=== PATIENT | female | born 1970 | race Caucasian/White ===

== ENCOUNTER 2019-11-21 13:24 | Outpatient (CLI) | payer BC ==
--- NOTE | 2019-11-21 14:13 | MMO ---
Bilateral MAMMO Bilat Screen [facility]. CLINICAL HISTORY: Patient is 49 years old and is seen for screening. The patient has no family history of breast cancer. The patient has no personal history of cancer. VIEWS: The views performed were: bilateral craniocaudal; bilateral craniocaudal with tomosynthesis; bilateral mediolateral oblique; and bilateral mediolateral oblique with tomosynthesis. This study has been interpreted with the assistance of computer-aided detection. MAMMOGRAM FINDINGS: The breasts are almost entirely fat. There are benign appearing calcifications seen in both breasts. There are no suspicious masses, suspicious calcifications, or new areas of architectural distortion. IMPRESSION: THERE IS NO MAMMOGRAPHIC EVIDENCE OF MALIGNANCY. A ROUTINE FOLLOW-UP MAMMOGRAM IN 1 YEAR IS RECOMMENDED. THE RESULTS OF THIS EXAM WERE SENT TO THE PATIENT. ACR BI-RADS Category 2 - Benign finding MAMMOGRAPHY NOTE: 1. A negative mammogram report should not delay a biopsy if a dominant of clinically suspicious mass is present. 2. Approximately 10% to 15% of breast cancers are not detected by mammography. 3. Adenosis and dense breasts may obscure an underlying neoplasm. Reported by: DOM WAY MD Electonically Signed: [id number]
== END 2019-11-21 13:25 | disposition home or self-care (01) ==
LOC: BICMAMMO 13:24
PROVIDERS: ATTEND Family Medicine
DX: Z12.31 Encounter for screening mammogram for malignant neoplasm of breast (principal)
CPT/HCPCS: 77063; 77067

== ENCOUNTER 2021-03-09 13:01 | Outpatient (CLI) | payer BC | END 2021-03-09 13:02 | disposition home or self-care (01) | LOC: BICMAMMO 13:01 | PROVIDERS: ATTEND Family Medicine | DX: Z12.31 Encounter for screening mammogram for malignant neoplasm of breast (principal) | CPT/HCPCS: 77063; 77067 ==

== ENCOUNTER 2021-05-28 11:13 | Inpatient (IN) | payer BC ==
[2021-05-28] MEDS ORDERED: Clindamycin/D5W 900 mg/50 ml Premix Bag ONE (11:57)
[2021-05-28] MEDS ORDERED: Cefepime 2 GM VIAL ONE (11:57)
[2021-05-28 12:13] LABS: #Basophils 0.1 thou/uL (0.0-0.2); #Eosinphils 0.1 thou/uL (0.0-0.7); #Monocytes 2.1 thou/uL (0.11-0.59); #Neutrophils 12.7 thou/uL (1.40-6.50); %Basophils 0.4 % (0.0-1.0); %Eosinophils 0.4 % (0.0-10.0); %Lymphocytes 11.8 % (21.0-51.0); %Monocytes 12.6 % (0.0-10.0); %Neutrophils 74.8 % (42.0-75.0); Hemoglobin 15.4 g/dL (12.0-16.0); Mean Corpuscular Hemoglobin 31.2 pg (27.0-31.0); Mean Corpuscular Volume 91.6 fL (78.0-98.0); Mean Platelet Volume 7.7 fL (7.4-10.4); Platelet Count 283 thou/uL (130-400); RBC Distribution Width 11.9 % (11.5-14.5); Red Blood Cell (RBC) Count 4.94 mill/uL (4.20-5.40)
[2021-05-28 12:28] LABS: ALT (SGPT) 16 U/L (8-55); AST (SGOT) 17 U/L (5-34); Albumin 3.4 g/dL (3.5-5.0); Alkaline Phosphatase 164 U/L (40-110); Anion Gap 15 mmol/L (10-20); BUN (Urea Nitrogen) 9 mg/dL (9.8-20.1); Bilirubin, Total 1.1 mg/dL (0.2-1.2); Calc. Creatinine Clearance 0 mL/min (70-130); Calcium 9.5 mg/dL (7.8-10.44); Carbon Dioxide 23 mmol/L (22-29); Chloride 100 mmol/L (98-107); Globulin 4.5 g/dL (2.4-3.5); Glucose 286 mg/dL (70-105); Potassium 3.9 mmol/L (3.5-5.1); Protein, Total 7.9 g/dL (6.0-8.3); Sodium 134 mmol/L (136-145)
[2021-05-28] MEDS ORDERED: Dextrose 5% in Water 1,000 ML IV PRN (13:39)
[2021-05-28] MEDS ORDERED: Dextrose 50% Abboject 50 ML SYRINGE SLOW IVP PRN (13:39)
[2021-05-28] MEDS ORDERED: Acetaminophen 325 MG TAB PO PRN (13:39)
[2021-05-28] MEDS ORDERED: HumaLOG 300 UNITS/3 ML VIAL SC PRN (13:39)
[2021-05-28 14:59] VITALS: BMI 52.5
[2021-05-28] MEDS: HYDROcodone/Acetaminophen 5/325 mg Tablet PO PRN ×2 (15:02→21:39)
[2021-05-28] MEDS: Cefepime 2 GM in Sodium Chloride 0.9% 100 ML IVPB SCH ×2 (15:02→15:29)
[2021-05-28 15:18] LABS: Lactic Acid 1.7 mmol/L (0.5-2.2)
[2021-05-28] MEDS: HumaLOG 300 UNITS/3 ML VIAL SC PRN (17:06)
[2021-05-28 19:43] LABS: SARS-CoV-2 PCR by NAA Not Detected (NotDetected)
[2021-05-28] MEDS ORDERED: Lantus 1000 UNITS/10 ML VIAL SC SCH (21:00)
[2021-05-28] MEDS: Clindamycin/D5W 900 MG in Premix Bag 1 BAG IVPB SCH (21:38)
[2021-05-29] MEDS: Cefepime 2 GM in Sodium Chloride 0.9% 100 ML IVPB SCH ×2 (00:20→13:24)
[2021-05-29] MEDS: Clindamycin/D5W 900 MG in Premix Bag 1 BAG IVPB SCH ×2 (05:02→14:21)
[2021-05-29] MEDS: HumaLOG 300 UNITS/3 ML VIAL SC PRN ×4 (05:02→21:12)
[2021-05-29 05:58] LABS: #Eosinphils 0.1 thou/uL (0.0-0.7); #Lymphocytes 2.5 thou/uL (1.20-3.40); #Monocytes 2.2 thou/uL (0.11-0.59); #Neutrophils 10.6 thou/uL (1.40-6.50); %Basophils 0.3 % (0.0-1.0); %Eosinophils 0.5 % (0.0-10.0); %Lymphocytes 15.9 % (21.0-51.0); %Monocytes 14.4 % (0.0-10.0); %Neutrophils 68.9 % (42.0-75.0); Hemoglobin 13.4 g/dL (12.0-16.0); Mean Corpuscular HGB CONC 33.5 g/dL (32.0-36.0); Mean Corpuscular Hemoglobin 30.5 pg (27.0-31.0); Mean Corpuscular Volume 91.1 fL (78.0-98.0); Mean Platelet Volume 7.4 fL (7.4-10.4); Platelet Count 249 thou/uL (130-400); RBC Distribution Width 11.8 % (11.5-14.5); White Blood Cell (WBC) Count 15.4 thou/uL (4.8-10.8)
[2021-05-29 06:18] LABS: Anion Gap 11 mmol/L (10-20); BUN (Urea Nitrogen) 11 mg/dL (9.8-20.1); Calc. Creatinine Clearance 214 mL/min (70-130); Calcium 8.7 mg/dL (7.8-10.44); Carbon Dioxide 24 mmol/L (22-29); Chloride 101 mmol/L (98-107); Glucose 232 mg/dL (70-105); Potassium 3.8 mmol/L (3.5-5.1); Sodium 132 mmol/L (136-145)
[2021-05-29] MEDS ORDERED: Insulin Glargine 30 UNITS in Pre-Filled Syringe 1 EACH SC SCH (09:00)
[2021-05-29] MEDS ORDERED: Lantus 1000 UNITS/10 ML VIAL SC SCH (09:00)
[2021-05-29] MEDS: Enoxaparin Sodium 40 MG/0.4 ML SYRINGE SC SCH (09:13)
[2021-05-29] MEDS ORDERED: Famotidine 20 MG TAB PO SCH ×2 (10:00→21:00)
[2021-05-29] MEDS: HYDROcodone/Acetaminophen 5/325 mg Tablet PO PRN (13:22)
[2021-05-29] MEDS: Linezolid 600 MG TAB PO SCH (21:10)
[2021-05-29] MEDS: Atorvastatin Calcium 10 MG TAB PO SCH (21:10)
[2021-05-29] MEDS: Famotidine 20 MG TAB PO SCH (21:10)
[2021-05-29] MEDS: Lantus 1000 UNITS/10 ML VIAL SC SCH (21:11)
[2021-05-29] MEDS: ceFAZolin Sodium/D5W 2 GM in Premix Bag 1 BAG IVPB SCH (21:26)
[2021-05-29] MEDS ORDERED: CEFAZOLIN 2 GM in Premix Bag 1 BAG IVPB SCH (22:00)
[2021-05-30] MEDS: HYDROcodone/Acetaminophen 5/325 mg Tablet PO PRN ×2 (00:28→17:53)
[2021-05-30 05:57] LABS: #Eosinphils 0.1 thou/uL (0.0-0.7); #Lymphocytes 2.4 thou/uL (1.20-3.40); #Monocytes 1.6 thou/uL (0.11-0.59); #Neutrophils 10.4 thou/uL (1.40-6.50); %Basophils 0.3 % (0.0-1.0); %Eosinophils 0.6 % (0.0-10.0); %Lymphocytes 16.3 % (21.0-51.0); %Monocytes 11.2 % (0.0-10.0); %Neutrophils 71.7 % (42.0-75.0); Hemoglobin 14.3 g/dL (12.0-16.0); Mean Corpuscular HGB CONC 33.2 g/dL (32.0-36.0); Mean Corpuscular Hemoglobin 30.6 pg (27.0-31.0); Mean Corpuscular Volume 92.1 fL (78.0-98.0); Platelet Count 302 thou/uL (130-400); RBC Distribution Width 11.6 % (11.5-14.5); Red Blood Cell (RBC) Count 4.68 mill/uL (4.20-5.40); White Blood Cell (WBC) Count 14.5 thou/uL (4.8-10.8)
[2021-05-30] MEDS: HumaLOG 300 UNITS/3 ML VIAL SC PRN ×4 (06:00→17:51)
[2021-05-30] MEDS: ceFAZolin Sodium/D5W 2 GM in Premix Bag 1 BAG IVPB SCH ×3 (06:01→21:58)
[2021-05-30 06:22] LABS: Anion Gap 12 mmol/L (10-20); BUN (Urea Nitrogen) 9 mg/dL (9.8-20.1); Calc. Creatinine Clearance 211 mL/min (70-130); Carbon Dioxide 22 mmol/L (22-29); Chloride 101 mmol/L (98-107); Glucose 220 mg/dL (70-105); Potassium 4.2 mmol/L (3.5-5.1); Sodium 131 mmol/L (136-145)
[2021-05-30] MEDS: Linezolid 600 MG TAB PO SCH ×2 (08:01→20:25)
[2021-05-30] MEDS: Enoxaparin Sodium 40 MG/0.4 ML SYRINGE SC SCH (08:01)
[2021-05-30] MEDS: Lantus 1000 UNITS/10 ML VIAL SC SCH ×3 (08:01→20:43)
[2021-05-30] MEDS: Famotidine 20 MG TAB PO SCH ×2 (08:02→20:25)
[2021-05-30] MEDS: Atorvastatin Calcium 10 MG TAB PO SCH (20:25)
[2021-05-31] MEDS: HumaLOG 300 UNITS/3 ML VIAL SC PRN ×4 (06:23→19:46)
[2021-05-31] MEDS: ceFAZolin Sodium/D5W 2 GM in Premix Bag 1 BAG IVPB SCH ×3 (06:24→22:06)
[2021-05-31 06:52] LABS: Anion Gap 11 mmol/L (10-20); BUN (Urea Nitrogen) 7 mg/dL (9.8-20.1); Calc. Creatinine Clearance 224 mL/min (70-130); Calcium 8.8 mg/dL (7.8-10.44); Carbon Dioxide 26 mmol/L (22-29); Chloride 103 mmol/L (98-107); Glucose 183 mg/dL (70-105); Potassium 3.8 mmol/L (3.5-5.1); Sodium 136 mmol/L (136-145)
[2021-05-31 07:17] LABS: Eosinophils 3 % (0-10); Lymphocytes 17 % (21-51); MDiff Complete? YES; Mean Corpuscular HGB CONC 33.2 g/dL (32.0-36.0); Mean Corpuscular Hemoglobin 30.5 pg (27.0-31.0); Mean Corpuscular Volume 92.1 fL (78.0-98.0); Mean Platelet Volume 6.9 fL (7.4-10.4); Monocytes 10 % (0-10); Neutrophil 70 % (42-75); Platelet Count 301 thou/uL (130-400); Platelet Morphology Comment Appears Adequate; RBC Distribution Width 11.6 % (11.5-14.5); RBC Morphology Normal; Red Blood Cell (RBC) Count 4.58 mill/uL (4.20-5.40); White Blood Cell (WBC) Count 10.3 thou/uL (4.8-10.8)
[2021-05-31] MEDS: Linezolid 600 MG TAB PO SCH (08:06)
[2021-05-31] MEDS: Enoxaparin Sodium 40 MG/0.4 ML SYRINGE SC SCH (08:06)
[2021-05-31] MEDS: Famotidine 20 MG TAB PO SCH ×2 (08:07→19:45)
[2021-05-31] MEDS: Lantus 1000 UNITS/10 ML VIAL SC SCH ×2 (08:07→19:46)
[2021-05-31] MEDS: HYDROcodone/Acetaminophen 5/325 mg Tablet PO PRN (18:00)
[2021-05-31] MEDS: Atorvastatin Calcium 10 MG TAB PO SCH (19:45)
[2021-06-01] MEDS: Furosemide 40 MG/4 ML VIAL SLOW IVP SCH ×2 (06:05→14:05)
[2021-06-01] MEDS: ceFAZolin Sodium/D5W 2 GM in Premix Bag 1 BAG IVPB SCH ×3 (06:05→22:22)
[2021-06-01 06:51] LABS: Anion Gap 9 mmol/L (10-20); BUN (Urea Nitrogen) 7 mg/dL (9.8-20.1); Calc. Creatinine Clearance 239 mL/min (70-130); Calcium 8.9 mg/dL (7.8-10.44); Carbon Dioxide 28 mmol/L (22-29); Chloride 104 mmol/L (98-107); Glucose 167 mg/dL (70-105); Potassium 4.1 mmol/L (3.5-5.1); Sodium 137 mmol/L (136-145)
[2021-06-01 07:37] LABS: Band 3 % (5-11); Eosinophils 2 % (0-10); Hemoglobin 13.6 g/dL (12.0-16.0); Lymphocytes 21 % (21-51); MDiff Complete? YES; Mean Corpuscular HGB CONC 33.9 g/dL (32.0-36.0); Mean Corpuscular Hemoglobin 30.7 pg (27.0-31.0); Mean Corpuscular Volume 90.5 fL (78.0-98.0); Mean Platelet Volume 6.7 fL (7.4-10.4); Monocytes 7 % (0-10); Neutrophil 62 % (42-75); Platelet Count 307 thou/uL (130-400); RBC Distribution Width 11.6 % (11.5-14.5); RBC Morphology Normal; Reactive Lymphocytes 5 % (0-10); Red Blood Cell (RBC) Count 4.45 mill/uL (4.20-5.40); White Blood Cell (WBC) Count 9.5 thou/uL (4.8-10.8)
[2021-06-01] MEDS: Famotidine 20 MG TAB PO SCH ×2 (08:27→20:37)
[2021-06-01] MEDS: Enoxaparin Sodium 40 MG/0.4 ML SYRINGE SC SCH (08:27)
[2021-06-01] MEDS: Lantus 1000 UNITS/10 ML VIAL SC SCH ×2 (08:28→20:38)
[2021-06-01] MEDS: HumaLOG 300 UNITS/3 ML VIAL SC PRN ×3 (12:59→20:38)
[2021-06-01] MEDS: HYDROcodone/Acetaminophen 5/325 mg Tablet PO PRN ×2 (15:21→22:21)
[2021-06-01] MEDS: Lactated Ringer's 1,000 ML IV SCH (18:14)
[2021-06-01] MEDS: Atorvastatin Calcium 10 MG TAB PO SCH (20:37)
[2021-06-02] MEDS: Lactated Ringer's 1,000 ML IV SCH ×3 (01:30→22:00)
[2021-06-02] MEDS: Furosemide 40 MG/4 ML VIAL SLOW IVP SCH ×2 (05:17→14:50)
[2021-06-02] MEDS: ceFAZolin Sodium/D5W 2 GM in Premix Bag 1 BAG IVPB SCH ×3 (05:17→21:20)
[2021-06-02] MEDS: HumaLOG 300 UNITS/3 ML VIAL SC PRN ×4 (06:02→21:18)
[2021-06-02] MEDS: Famotidine 20 MG TAB PO SCH ×2 (07:44→20:41)
[2021-06-02] MEDS: Enoxaparin Sodium 40 MG/0.4 ML SYRINGE SC SCH (07:44)
[2021-06-02] MEDS: Lantus 1000 UNITS/10 ML VIAL SC SCH ×2 (07:45→21:17)
[2021-06-02] MEDS: HYDROcodone/Acetaminophen 5/325 mg Tablet PO PRN ×2 (10:42→20:41)
[2021-06-02] MEDS: Atorvastatin Calcium 10 MG TAB PO SCH (20:42)
[2021-06-03] MEDS: ceFAZolin Sodium/D5W 2 GM in Premix Bag 1 BAG IVPB SCH ×3 (05:13→22:44)
[2021-06-03] MEDS: Furosemide 40 MG/4 ML VIAL SLOW IVP SCH ×2 (05:13→15:03)
[2021-06-03] MEDS: Lactated Ringer's 1,000 ML IV SCH ×2 (09:40→18:12)
[2021-06-03] MEDS: Famotidine 20 MG TAB PO SCH ×2 (09:40→20:18)
[2021-06-03] MEDS: Enoxaparin Sodium 40 MG/0.4 ML SYRINGE SC SCH (09:40)
[2021-06-03] MEDS: Lantus 1000 UNITS/10 ML VIAL SC SCH ×2 (09:41→20:19)
[2021-06-03] MEDS: HumaLOG 300 UNITS/3 ML VIAL SC PRN ×3 (12:38→20:20)
[2021-06-03] MEDS: Atorvastatin Calcium 10 MG TAB PO SCH (20:18)
[2021-06-04] MEDS: Lactated Ringer's 1,000 ML IV SCH (01:09)
[2021-06-04] MEDS: ceFAZolin Sodium/D5W 2 GM in Premix Bag 1 BAG IVPB SCH (05:18)
[2021-06-04] MEDS: Furosemide 40 MG/4 ML VIAL SLOW IVP SCH (05:18)
[2021-06-04] MEDS: HumaLOG 300 UNITS/3 ML VIAL SC PRN ×2 (05:19→12:35)
[2021-06-04] MEDS: Lantus 1000 UNITS/10 ML VIAL SC SCH (09:14)
[2021-06-04] MEDS: Enoxaparin Sodium 40 MG/0.4 ML SYRINGE SC SCH (09:15)
[2021-06-04] MEDS: Famotidine 20 MG TAB PO SCH (09:15)
[2021-06-04 11:14] VITALS: BP 129/84; TEMP 98.1
== END 2021-06-04 13:40 | disposition home or self-care (01) | DRG 872 ==
LOC: ERS 11:13 → T4-A 12:59
PROVIDERS: ADMIT Family Medicine; ATTEND Hospitalist
PROC: 0Y9N3ZZ Drainage of Left Foot, Percutaneous Approach (ICD-10-PCS; principal; 2021-05-29)
PROC: 0J9R0ZZ Drainage of Left Foot Subcutaneous Tissue and Fascia, Open Approach (ICD-10-PCS; 2021-06-02)
PROC: 0J9R0ZZ Drainage of Left Foot Subcutaneous Tissue and Fascia, Open Approach (ICD-10-PCS; 2021-06-02)
DX: A40.1 Sepsis due to streptococcus, group B (principal); Z68.43 Body mass index [BMI] 50.0-59.9, adult; L02.612 Cutaneous abscess of left foot; I10 Essential (primary) hypertension; E78.5 Hyperlipidemia, unspecified; E11.42 Type 2 diabetes mellitus with diabetic polyneuropathy; E66.01 Morbid (severe) obesity due to excess calories; I89.0 Lymphedema, not elsewhere classified; E11.628 Type 2 diabetes mellitus with other skin complications; E78.00 Pure hypercholesterolemia, unspecified; Z20.822 Contact with and (suspected) exposure to COVID-19; Z90.49 Acquired absence of other specified parts of digestive tract; Z90.710 Acquired absence of both cervix and uterus; Z88.1 Allergy status to other antibiotic agents; Z88.8 Allergy status to other drugs, medicaments and biological substances
CPT/HCPCS: 36415; 36416; 80048; 80053; 83605; 83880; 85025; 87040; 87070; 87077; 87205; 93005; 96365; 96366; 96368; J0692; J1650; J1815; J1940; J3490; J7120; U0003; U0005

== ENCOUNTER 2021-11-19 11:03 | Inpatient (IN) | payer BC ==
[2021-11-19 11:39] LABS: #Basophils 0.1 thou/uL (0.0-0.2); #Eosinphils 0.1 thou/uL (0.0-0.7); #Lymphocytes 2.5 thou/uL (1.20-3.40); #Monocytes 1.6 thou/uL (0.11-0.59); #Neutrophils 8.4 thou/uL (1.40-6.50); %Basophils 0.5 % (0.0-1.0); %Eosinophils 1.1 % (0.0-10.0); %Lymphocytes 19.6 % (21.0-51.0); %Monocytes 12.3 % (0.0-10.0); %Neutrophils 66.4 % (42.0-75.0); Hemoglobin 16.3 g/dL (12.0-16.0); Mean Corpuscular HGB CONC 32.4 g/dL (32.0-36.0); Mean Corpuscular Volume 92.6 fL (78.0-98.0); Mean Platelet Volume 7.6 fL (7.4-10.4); Platelet Count 376 thou/uL (130-400); RBC Distribution Width 11.7 % (11.5-14.5); Red Blood Cell (RBC) Count 5.42 mill/uL (4.20-5.40); White Blood Cell (WBC) Count 12.7 thou/uL (4.8-10.8)
[2021-11-19 11:49] LABS: PTT 27.4 sec (22.9-36.1); Prothrombin Time 13.7 sec (12.0-14.7)
[2021-11-19 11:53] LABS: Phosphorus 2.7 mg/dL (2.3-4.7)
[2021-11-19 11:55] LABS: ALT (SGPT) 16 U/L (8-55); AST (SGOT) 19 U/L (5-34); Albumin 3.6 g/dL (3.5-5.0); Alkaline Phosphatase 118 U/L (40-110); Anion Gap 16 mmol/L (10-20); BUN (Urea Nitrogen) 8 mg/dL (9.8-20.1); Bilirubin, Total 1.2 mg/dL (0.2-1.2); Calc. Creatinine Clearance 0 mL/min (70-130); Calcium 9.4 mg/dL (7.8-10.44); Carbon Dioxide 25 mmol/L (22-29); Chloride 99 mmol/L (98-107); Globulin 5.3 g/dL (2.4-3.5); Glucose 345 mg/dL (70-105); Magnesium 1.6 mg/dL (1.6-2.6); Potassium 3.5 mmol/L (3.5-5.1); Protein, Total 8.9 g/dL (6.0-8.3); Sodium 136 mmol/L (136-145)
[2021-11-19] MEDS ORDERED: Clindamycin/D5W 900 mg/50 ml Premix Bag ONE (12:04)
[2021-11-19] MEDS ORDERED: cefTRIAXone\\ROCEPHIN 2 GM VIAL ONE (12:04)
[2021-11-19] MEDS ORDERED: Insulin Regular 300 UNITS/3 ML VIAL ONE (12:17)
[2021-11-19 14:30] LABS: Actual Bicarbonate (HCO3v) 25 mEq/L (22-28); Analyzer IN Cardio ER; Base Excess -0.5 mEq/L (-2.0 to +3.0); Calcium, Ionized (venous) 1.07 mmol/L (1.16-1.32); Chloride (VBG) 104 mmol/L (98-106); Hemoglobin (Hb) 14.4 g/dL (11.7-16.0); Potassium (VBG) 3.58 mmol/L (3.70-5.30); Sodium 134.6 mmol/L (133-146); pH (venous) 7.38 (7.32-7.43)
[2021-11-19 15:02] LABS: Lactic Acid 1.8 mmol/L (0.5-2.2)
[2021-11-19] MEDS ORDERED: Ondansetron PF 4 MG/2 ML Vial IVP PRN ×2 (15:35→16:15)
[2021-11-19] MEDS ORDERED: Senokot S 8.6-50 MG TAB PO PRN (15:35)
[2021-11-19] MEDS ORDERED: Calcium Carbonate 500 MG ChewTAB PO PRN (15:35)
[2021-11-19] MEDS ORDERED: Ondansetron ODT 4 MG TAB PO PRN (15:35)
[2021-11-19 16:09] VITALS: BMI 51.0
[2021-11-19] MEDS ORDERED: Acetaminophen 325 MG TAB PO PRN (16:15)
[2021-11-19] MEDS ORDERED: Ondansetron ODT 4 MG TAB SL PRN (16:15)
[2021-11-19] MEDS ORDERED: Dextrose 5% in Water 1,000 ML IV PRN (16:17)
[2021-11-19] MEDS ORDERED: Dextrose 50% Abboject 50 ML SYRINGE SLOW IVP PRN (16:17)
[2021-11-19] MEDS ORDERED: Electrolyte Replacement Protocol 1 EACH FS PRN (16:30)
[2021-11-19] MEDS: Insulin Regular 300 UNITS/3 ML VIAL SC PRN (17:20)
[2021-11-19] MEDS: Ampicillin/Sulbactam 3 GM in Sodium Chloride 0.9% 100 ML IVPB SCH (17:28)
[2021-11-19] MEDS: hydrALAZINE 25 MG TAB PO SCH (22:15)
[2021-11-19] MEDS: Insulin Glargine 30 UNITS/0.3 ML VIAL SC SCH (22:15)
[2021-11-19] MEDS: Atorvastatin Calcium 10 MG TAB PO SCH (22:15)
[2021-11-19] MEDS: traMADol HCl 50 MG TAB PO PRN (22:19)
[2021-11-20] MEDS ORDERED: Magnesium 2 GM/50 ML(in water) 2 GM in Premix Bag 1 BAG IVPB SCH (00:30)
[2021-11-20] MEDS: Ampicillin/Sulbactam 3 GM in Sodium Chloride 0.9% 100 ML IVPB SCH ×4 (00:58→17:36)
[2021-11-20] MEDS: Acetaminophen 325 MG TAB PO PRN (00:58)
[2021-11-20] MEDS: traMADol HCl 50 MG TAB PO PRN (06:06)
[2021-11-20 06:38] LABS: Anion Gap 11 mmol/L (10-20); BUN (Urea Nitrogen) 8 mg/dL (9.8-20.1); CRP (Inflammatory) 11.91 mg/dL (= or < 0.5); Calc. Creatinine Clearance 209 mL/min (70-130); Calcium 8.1 mg/dL (7.8-10.44); Carbon Dioxide 25 mmol/L (22-29); Chloride 102 mmol/L (98-107); Glucose 251 mg/dL (70-105); Potassium 3.6 mmol/L (3.5-5.1); Sodium 134 mmol/L (136-145)
[2021-11-20] MEDS ORDERED: Potassium Chloride 20 MEQ TAB PO SCH (08:00)
[2021-11-20 08:04] LABS: Hemoglobin 13.1 g/dL (12.0-16.0); Mean Corpuscular HGB CONC 32.3 g/dL (32.0-36.0); Mean Corpuscular Hemoglobin 30.1 pg (27.0-31.0); Mean Corpuscular Volume 93.2 fL (78.0-98.0); Mean Platelet Volume 7.3 fL (7.4-10.4); Platelet Count 278 thou/uL (130-400); RBC Distribution Width 11.5 % (11.5-14.5); Red Blood Cell (RBC) Count 4.34 mill/uL (4.20-5.40)
[2021-11-20 08:05] LABS: Lymphocytes 22 % (21-51); MDiff Complete? YES; Monocytes 6 % (0-10); Neutrophil 72 % (42-75); Platelet Morphology Comment Appears Adequate; RBC Morphology Normal
[2021-11-20] MEDS: hydrALAZINE 25 MG TAB PO SCH ×2 (08:39→21:40)
[2021-11-20] MEDS: Furosemide 20 MG TAB PO SCH (08:39)
[2021-11-20] MEDS: Aspirin 81 mg Enteric Coated Tablet PO SCH (08:39)
[2021-11-20] MEDS: Lisinopril 10 MG TAB PO SCH (08:39)
[2021-11-20] MEDS: Saccharomyces boulardii 250 MG CAP PO SCH (08:39)
[2021-11-20] MEDS: Enoxaparin Sodium 40 MG/0.4 ML SYRINGE SC SCH (08:39)
[2021-11-20] MEDS: Insulin Glargine 30 UNITS/0.3 ML VIAL SC SCH ×2 (08:40→21:40)
[2021-11-20] MEDS ORDERED: Saccharomyces boulardii 250 MG CAP PO SCH (09:00)
[2021-11-20] MEDS: Insulin Regular 300 UNITS/3 ML VIAL SC PRN ×2 (11:45→17:36)
[2021-11-20] MEDS: Atorvastatin Calcium 10 MG TAB PO SCH (21:39)
[2021-11-21] MEDS: Ampicillin/Sulbactam 3 GM in Sodium Chloride 0.9% 100 ML IVPB SCH ×5 (01:00→23:38)
[2021-11-21] MEDS: Nystatin Cream 15 GM TUBE TOP SCH ×3 (01:35→20:58)
[2021-11-21] MEDS: Aspirin 81 mg Enteric Coated Tablet PO SCH (08:41)
[2021-11-21] MEDS: Furosemide 20 MG TAB PO SCH (08:41)
[2021-11-21] MEDS: Saccharomyces boulardii 250 MG CAP PO SCH (08:41)
[2021-11-21] MEDS: Insulin Glargine 30 UNITS/0.3 ML VIAL SC SCH ×2 (08:41→20:57)
[2021-11-21] MEDS: Lisinopril 10 MG TAB PO SCH (08:41)
[2021-11-21] MEDS: hydrALAZINE 25 MG TAB PO SCH ×2 (08:41→20:57)
[2021-11-21] MEDS: Enoxaparin Sodium 40 MG/0.4 ML SYRINGE SC SCH (08:42)
[2021-11-21] MEDS: Insulin Regular 300 UNITS/3 ML VIAL SC PRN ×2 (17:06→20:57)
[2021-11-21] MEDS: Atorvastatin Calcium 10 MG TAB PO SCH (20:57)
[2021-11-21] MEDS: traMADol HCl 50 MG TAB PO PRN (23:38)
[2021-11-22] MEDS: Ampicillin/Sulbactam 3 GM in Sodium Chloride 0.9% 100 ML IVPB SCH ×4 (05:01→23:29)
[2021-11-22] MEDS: Insulin Regular 300 UNITS/3 ML VIAL SC PRN ×4 (05:02→21:00)
[2021-11-22 08:10] LABS: Anion Gap 13 mmol/L (10-20); BUN (Urea Nitrogen) 5 mg/dL (9.8-20.1); Calc. Creatinine Clearance 212 mL/min (70-130); Calcium 8.6 mg/dL (7.8-10.44); Carbon Dioxide 28 mmol/L (22-29); Chloride 101 mmol/L (98-107); Glucose 178 mg/dL (70-105); Potassium 3.8 mmol/L (3.5-5.1); Sodium 138 mmol/L (136-145)
[2021-11-22 08:26] LABS: Band 8 % (5-11); Eosinophils 1 % (0-10); Hemoglobin 13.1 g/dL (12.0-16.0); Lymphocytes 13 % (21-51); MDiff Complete? YES; Mean Corpuscular HGB CONC 32.4 g/dL (32.0-36.0); Mean Corpuscular Volume 92.8 fL (78.0-98.0); Mean Platelet Volume 6.9 fL (7.4-10.4); Monocytes 11 % (0-10); Neutrophil 62 % (42-75); Platelet Count 285 thou/uL (130-400); Platelet Morphology Comment Appears Adequate; RBC Distribution Width 11.4 % (11.5-14.5); RBC Morphology Normal; Reactive Lymphocytes 5 % (0-10); Red Blood Cell (RBC) Count 4.36 mill/uL (4.20-5.40); White Blood Cell (WBC) Count 8.7 thou/uL (4.8-10.8)
[2021-11-22] MEDS: Saccharomyces boulardii 250 MG CAP PO SCH (08:46)
[2021-11-22] MEDS: hydrALAZINE 25 MG TAB PO SCH ×2 (08:46→20:59)
[2021-11-22] MEDS: Aspirin 81 mg Enteric Coated Tablet PO SCH (08:46)
[2021-11-22] MEDS: Lisinopril 10 MG TAB PO SCH (08:47)
[2021-11-22] MEDS: Enoxaparin Sodium 40 MG/0.4 ML SYRINGE SC SCH (08:47)
[2021-11-22] MEDS: Furosemide 20 MG TAB PO SCH (08:47)
[2021-11-22] MEDS: Insulin Glargine 30 UNITS/0.3 ML VIAL SC SCH ×2 (08:48→20:59)
[2021-11-22] MEDS: Nystatin Cream 15 GM TUBE TOP SCH ×2 (08:50→21:00)
[2021-11-22] MEDS: traMADol HCl 50 MG TAB PO PRN (12:12)
[2021-11-22] MEDS ORDERED: Lidocaine 1% w/Epinephrine 1:100K 20 ML VIAL ONE (16:24)
[2021-11-22] MEDS: Atorvastatin Calcium 10 MG TAB PO SCH (20:59)
[2021-11-22] MEDS: Acetaminophen 325 MG TAB PO PRN (21:01)
[2021-11-23] MEDS: Insulin Regular 300 UNITS/3 ML VIAL SC PRN ×2 (05:56→12:54)
[2021-11-23] MEDS: Ampicillin/Sulbactam 3 GM in Sodium Chloride 0.9% 100 ML IVPB SCH ×3 (05:56→17:29)
[2021-11-23] MEDS: Saccharomyces boulardii 250 MG CAP PO SCH (08:17)
[2021-11-23] MEDS: Enoxaparin Sodium 40 MG/0.4 ML SYRINGE SC SCH (08:18)
[2021-11-23] MEDS: Insulin Glargine 30 UNITS/0.3 ML VIAL SC SCH ×2 (08:18→19:57)
[2021-11-23] MEDS: Lisinopril 10 MG TAB PO SCH (08:18)
[2021-11-23] MEDS: Furosemide 20 MG TAB PO SCH (08:18)
[2021-11-23] MEDS: hydrALAZINE 25 MG TAB PO SCH ×2 (08:18→19:57)
[2021-11-23] MEDS: Aspirin 81 mg Enteric Coated Tablet PO SCH (08:18)
[2021-11-23] MEDS: Nystatin Cream 15 GM TUBE TOP SCH ×2 (08:24→19:57)
[2021-11-23] MEDS: traMADol HCl 50 MG TAB PO PRN (10:31)
[2021-11-23] MEDS: Atorvastatin Calcium 10 MG TAB PO SCH (19:57)
[2021-11-24] MEDS: Ampicillin/Sulbactam 3 GM in Sodium Chloride 0.9% 100 ML IVPB SCH ×4 (00:30→17:56)
[2021-11-24] MEDS: Insulin Regular 300 UNITS/3 ML VIAL SC PRN ×2 (05:53→18:33)
[2021-11-24 08:33] VITALS: BP 130/81; TEMP 98.1
[2021-11-24] MEDS: Saccharomyces boulardii 250 MG CAP PO SCH (08:38)
[2021-11-24] MEDS: Aspirin 81 mg Enteric Coated Tablet PO SCH (08:38)
[2021-11-24] MEDS: Enoxaparin Sodium 40 MG/0.4 ML SYRINGE SC SCH (08:38)
[2021-11-24] MEDS: Lisinopril 10 MG TAB PO SCH (08:38)
[2021-11-24] MEDS: Furosemide 20 MG TAB PO SCH (08:39)
[2021-11-24] MEDS: Insulin Glargine 30 UNITS/0.3 ML VIAL SC SCH (08:39)
[2021-11-24] MEDS: Nystatin Cream 15 GM TUBE TOP SCH (08:39)
[2021-11-24] MEDS: hydrALAZINE 25 MG TAB PO SCH (10:24)
[2021-11-24 11:16] LABS: Mean Corpuscular HGB CONC 33.1 g/dL (32.0-36.0); Mean Corpuscular Hemoglobin 30.3 pg (27.0-31.0); Mean Corpuscular Volume 91.7 fL (78.0-98.0); Mean Platelet Volume 6.7 fL (7.4-10.4); Platelet Count 290 thou/uL (130-400); RBC Distribution Width 11.5 % (11.5-14.5); White Blood Cell (WBC) Count 7.1 thou/uL (4.8-10.8)
[2021-11-24 11:17] LABS: Anion Gap 11 mmol/L (10-20); BUN (Urea Nitrogen) 7 mg/dL (9.8-20.1); Calc. Creatinine Clearance 194 mL/min (70-130); Calcium 8.4 mg/dL (7.8-10.44); Carbon Dioxide 27 mmol/L (22-29); Chloride 101 mmol/L (98-107); Glucose 254 mg/dL (70-105); MDiff Complete? YES; Sodium 135 mmol/L (136-145)
[2021-11-24] MEDS: traMADol HCl 50 MG TAB PO PRN (11:28)
[2021-11-24 11:48] LABS: Band 6 % (5-11); Eosinophils 7 % (0-10); Lymphocytes 29 % (21-51); Monocytes 12 % (0-10); Neutrophil 44 % (42-75); Platelet Morphology Comment Appears Adequate; Reactive Lymphocytes 1 % (0-10)
[2021-11-24 11:49] LABS: RBC Morphology Normal
== END 2021-11-24 19:20 | disposition home or self-care (01) | DRG 872 ==
LOC: ERS 11:03 → T4-B 13:47
PROVIDERS: ADMIT Internal Medicine; ATTEND Internal Medicine
PROC: 3E03329 Introduction of Other Anti-infective into Peripheral Vein, Percutaneous Approach (ICD-10-PCS; 2021-11-19)
PROC: 0J9P0ZZ Drainage of Left Lower Leg Subcutaneous Tissue and Fascia, Open Approach (ICD-10-PCS; principal; 2021-11-23)
DX: A41.9 Sepsis, unspecified organism (principal); L03.116 Cellulitis of left lower limb; E87.2 Acidosis; L02.416 Cutaneous abscess of left lower limb; R65.20 Severe sepsis without septic shock; Z20.822 Contact with and (suspected) exposure to COVID-19; I10 Essential (primary) hypertension; E66.01 Morbid (severe) obesity due to excess calories; E78.5 Hyperlipidemia, unspecified; F41.9 Anxiety disorder, unspecified; E11.628 Type 2 diabetes mellitus with other skin complications; M19.90 Unspecified osteoarthritis, unspecified site; E11.65 Type 2 diabetes mellitus with hyperglycemia; G89.29 Other chronic pain; M54.50 Low back pain, unspecified; Z90.49 Acquired absence of other specified parts of digestive tract; Z90.710 Acquired absence of both cervix and uterus; Z88.1 Allergy status to other antibiotic agents; Z79.899 Other long term (current) drug therapy; Z79.82 Long term (current) use of aspirin; Z79.4 Long term (current) use of insulin; Z79.84 Long term (current) use of oral hypoglycemic drugs; Z83.3 Family history of diabetes mellitus; Z82.49 Family history of ischemic heart disease and other diseases of the circulatory system
CPT/HCPCS: 36415; 36416; 80048; 80053; 82010; 82805; 83605; 83735; 84100; 85025; 85610; 85730; 86140; 87040; 87070; 87077; 87186; 87205; 93005; 94760; 96361; 96365; 96367; 96375; J0295; J0696; J1650; J1815; J3475; J3490; U0003; U0005

== ENCOUNTER 2022-01-07 15:17 | Outpatient (CLI) | payer BC | END 2022-01-07 15:18 | disposition home or self-care (01) | LOC: BICULT 15:17 | PROVIDERS: ATTEND Surgery | DX: I82.409 Acute embolism and thrombosis of unspecified deep veins of unspecified lower extremity (principal) ==

== ENCOUNTER 2022-06-01 11:26 | Emergency (ER) | payer BC ==
[2022-06-01] MEDS ORDERED: Ketorolac Tromethamine 30 MG/ML VIAL ONE (12:08)
== END 2022-06-01 12:49 | disposition home or self-care (01) ==
LOC: ERS 11:26
DX: M62.838 Other muscle spasm (principal); E11.9 Type 2 diabetes mellitus without complications; I10 Essential (primary) hypertension; E78.5 Hyperlipidemia, unspecified; Z79.82 Long term (current) use of aspirin; Z79.84 Long term (current) use of oral hypoglycemic drugs; Z79.899 Other long term (current) drug therapy
CPT/HCPCS: 96372; J1885

== ENCOUNTER 2022-06-23 13:58 | Inpatient (IN) | payer BC, SELFPAY ==
[~2022-06-23 13:58] MED LIST: Iopamidol-370 76% 500 ML 1 ML ONE
[2022-06-23] MEDS ORDERED: Cefepime 2 GM VIAL ONE (14:58)
[2022-06-23 15:10] LABS: Hemoglobin 15.6 g/dL (12.0-16.0); Mean Corpuscular HGB CONC 33.7 g/dL (32.0-36.0); Mean Corpuscular Hemoglobin 29.6 pg (27.0-31.0); Mean Corpuscular Volume 87.8 fl (78.0-98.0); Mean Platelet Volume 7.8 fL (7.4-10.4); Platelet Count 307 10x3/uL (130-400); RBC Distribution Width 11.9 % (11.5-14.5); Red Blood Cell (RBC) Count 5.29 mill/uL (4.20-5.40); White Blood Cell (WBC) Count 21.1 10x3/uL (4.8-10.8)
[2022-06-23 15:30] LABS: Band 9 % (5-11); Lymphocytes 4 % (21-51); MDiff Complete? YES; Monocytes 13 % (0-10); Neutrophil 73 % (42-75); Platelet Morphology Comment Appears Adequate; RBC Morphology Normal; Reactive Lymphocytes 1 % (0-10)
[2022-06-23 15:34] LABS: ALT (SGPT) 42 U/L (8-55); AST (SGOT) 85 U/L (5-34); Alkaline Phosphatase 113 U/L (40-110); Anion Gap 13 mmol/L (10-20); BUN (Urea Nitrogen) 30 mg/dL (9.8-20.1); Bilirubin, Total 1.6 mg/dL (0.2-1.2); CK (CPK) 2238 U/L (29-168); Calc. Creatinine Clearance 0 mL/min (70-130); Calcium 9.3 mg/dL (7.8-10.44); Carbon Dioxide 28 mmol/L (22-29); Chloride 99 mmol/L (98-107); Estimated GFR 93; Globulin 5.3 g/dL (2.4-3.5); Glucose 316 mg/dL (70-105); Protein, Total 8.3 g/dL (6.0-8.3); Sodium 136 mmol/L (136-145)
[2022-06-23] MEDS ORDERED: Linezolid 600 MG in Premix Bag 1 BAG IVPB SCH (16:15)
[2022-06-23] MEDS ORDERED: Ondansetron ODT 4 MG TAB PO PRN (16:35)
[2022-06-23] MEDS ORDERED: Acetaminophen 650 MG Suppository PR PRN (16:35)
[2022-06-23] MEDS ORDERED: Ondansetron PF 4 MG/2 ML Vial IVP PRN (16:35)
[2022-06-23] MEDS ORDERED: Dextrose 5% in Water 1,000 ML IV PRN (16:40)
[2022-06-23] MEDS ORDERED: Dextrose 50% Abboject 50 ML SYRINGE SLOW IVP PRN (16:40)
[2022-06-23] MEDS ORDERED: HumaLOG 300 UNITS/3 ML VIAL SC PRN (16:40)
[2022-06-23] MEDS ORDERED: Sodium Chloride 0.9% 1,000 ML IV SCH (16:45)
[2022-06-23 19:17] LABS: SARS-CoV-2 NAA Rapid Test Not Detected (NotDetected)
[2022-06-24 01:37] VITALS: BMI 48.8
[2022-06-24 04:18] LABS: #Eosinphils 0.1 thou/uL (0.0-0.7); #Monocytes 1.7 thou/uL (0.11-0.59); #Neutrophils 15.3 thou/uL (1.40-6.50); %Basophils 0.1 % (0.0-1.0); %Eosinophils 0.8 % (0.0-10.0); %Lymphocytes 5.6 % (21.0-51.0); %Monocytes 9.2 % (0.0-10.0); %Neutrophils 84.4 % (42.0-75.0); Hemoglobin 13.8 g/dL (12.0-16.0); Mean Corpuscular HGB CONC 33.6 g/dL (32.0-36.0); Mean Corpuscular Hemoglobin 29.7 pg (27.0-31.0); Mean Corpuscular Volume 88.3 fl (78.0-98.0); Mean Platelet Volume 7.8 fL (7.4-10.4); Platelet Count 258 10x3/uL (130-400); Red Blood Cell (RBC) Count 4.64 mill/uL (4.20-5.40); White Blood Cell (WBC) Count 18.1 10x3/uL (4.8-10.8)
[2022-06-24] MEDS: Cefepime 2 GM in Sodium Chloride 0.9% 100 ML IVPB SCH ×2 (04:32→16:12)
[2022-06-24 04:41] LABS: Anion Gap 13 mmol/L (10-20); BUN (Urea Nitrogen) 22 mg/dL (9.8-20.1); Calc. Creatinine Clearance 189 mL/min (70-130); Calcium 8.3 mg/dL (7.8-10.44); Carbon Dioxide 23 mmol/L (22-29); Chloride 105 mmol/L (98-107); Estimated GFR 102; Glucose 284 mg/dL (70-105); Potassium 3.7 mmol/L (3.5-5.1); Sodium 137 mmol/L (136-145)
[2022-06-24] MEDS: Linezolid 600 MG in Premix Bag 1 BAG IVPB SCH ×2 (05:24→16:56)
[2022-06-24] MEDS: HumaLOG 300 UNITS/3 ML VIAL SC PRN ×3 (06:35→16:22)
[2022-06-24] MEDS: Aspirin 81 mg Enteric Coated Tablet PO SCH (10:52)
[2022-06-24] MEDS: Furosemide 20 MG TAB PO SCH (10:52)
[2022-06-24] MEDS ORDERED: Insulin Glargine 30 UNITS/0.3 ML VIAL SC SCH (21:00)
[2022-06-24] MEDS: Atorvastatin Calcium 20 MG TAB PO SCH (21:08)
[2022-06-25] MEDS: Cefepime 2 GM in Sodium Chloride 0.9% 100 ML IVPB SCH ×2 (03:05→15:31)
[2022-06-25] MEDS: Linezolid 600 MG in Premix Bag 1 BAG IVPB SCH ×2 (04:04→16:48)
[2022-06-25] MEDS: Acetaminophen 325 MG TAB PO PRN ×2 (04:07→12:30)
[2022-06-25 04:48] LABS: #Eosinphils 0.2 thou/uL (0.0-0.7); #Monocytes 1.6 thou/uL (0.11-0.59); #Neutrophils 9.3 thou/uL (1.40-6.50); %Basophils 0.1 % (0.0-1.0); %Eosinophils 1.5 % (0.0-10.0); %Lymphocytes 15.3 % (21.0-51.0); %Neutrophils 71.1 % (42.0-75.0); Hemoglobin 13.1 g/dL (12.0-16.0); Mean Corpuscular Hemoglobin 29.4 pg (27.0-31.0); Mean Corpuscular Volume 89.3 fl (78.0-98.0); Platelet Count 261 10x3/uL (130-400); RBC Distribution Width 11.9 % (11.5-14.5); Red Blood Cell (RBC) Count 4.45 mill/uL (4.20-5.40)
[2022-06-25 05:05] LABS: Anion Gap 11 mmol/L (10-20); BUN (Urea Nitrogen) 15 mg/dL (9.8-20.1); Calc. Creatinine Clearance 203 mL/min (70-130); Calcium 8.1 mg/dL (7.8-10.44); Carbon Dioxide 23 mmol/L (22-29); Chloride 103 mmol/L (98-107); Estimated GFR 105; Glucose 271 mg/dL (70-105); Potassium 3.7 mmol/L (3.5-5.1); Sodium 133 mmol/L (136-145)
[2022-06-25] MEDS: HumaLOG 300 UNITS/3 ML VIAL SC PRN ×3 (06:46→16:54)
[2022-06-25] MEDS: Furosemide 20 MG TAB PO SCH (09:29)
[2022-06-25] MEDS: Aspirin 81 mg Enteric Coated Tablet PO SCH (09:29)
[2022-06-25] MEDS: Insulin Glargine 30 UNITS/0.3 ML VIAL SC SCH ×2 (09:30→21:25)
[2022-06-25] MEDS: Atorvastatin Calcium 20 MG TAB PO SCH (21:24)
[2022-06-26] MEDS: Acetaminophen 325 MG TAB PO PRN (03:43)
[2022-06-26] MEDS: Cefepime 2 GM in Sodium Chloride 0.9% 100 ML IVPB SCH ×2 (03:43→14:24)
[2022-06-26] MEDS: Linezolid 600 MG in Premix Bag 1 BAG IVPB SCH ×2 (04:21→18:12)
[2022-06-26 05:01] LABS: #Eosinphils 0.3 thou/uL (0.0-0.7); #Lymphocytes 1.9 thou/uL (1.20-3.40); #Monocytes 1.3 thou/uL (0.11-0.59); %Basophils 0.2 % (0.0-1.0); %Eosinophils 2.5 % (0.0-10.0); %Lymphocytes 17.9 % (21.0-51.0); %Monocytes 12.7 % (0.0-10.0); %Neutrophils 66.8 % (42.0-75.0); Hemoglobin 12.8 g/dL (12.0-16.0); Mean Corpuscular HGB CONC 32.7 g/dL (32.0-36.0); Mean Corpuscular Hemoglobin 29.1 pg (27.0-31.0); Mean Corpuscular Volume 89.1 fl (78.0-98.0); Mean Platelet Volume 7.7 fL (7.4-10.4); Platelet Count 269 10x3/uL (130-400); RBC Distribution Width 11.7 % (11.5-14.5); Red Blood Cell (RBC) Count 4.41 mill/uL (4.20-5.40); White Blood Cell (WBC) Count 10.5 10x3/uL (4.8-10.8)
[2022-06-26 05:23] LABS: Anion Gap 10 mmol/L (10-20); BUN (Urea Nitrogen) 11 mg/dL (9.8-20.1); Calc. Creatinine Clearance 216 mL/min (70-130); Calcium 8.1 mg/dL (7.8-10.44); Carbon Dioxide 24 mmol/L (22-29); Chloride 105 mmol/L (98-107); Estimated GFR 107; Glucose 249 mg/dL (70-105); Potassium 3.8 mmol/L (3.5-5.1); Sodium 135 mmol/L (136-145)
[2022-06-26] MEDS: HumaLOG 300 UNITS/3 ML VIAL SC PRN ×2 (06:11→12:57)
[2022-06-26] MEDS: Insulin Glargine 30 UNITS/0.3 ML VIAL SC SCH ×2 (09:19→21:41)
[2022-06-26] MEDS: Aspirin 81 mg Enteric Coated Tablet PO SCH (09:19)
[2022-06-26] MEDS: Furosemide 20 MG TAB PO SCH (09:19)
[2022-06-26] MEDS: metFORMIN 500 MG TAB PO SCH (18:11)
[2022-06-26] MEDS: hydrALAZINE 25 MG TAB PO SCH (21:40)
[2022-06-26] MEDS: Atorvastatin Calcium 20 MG TAB PO SCH (21:40)
[2022-06-27] MEDS: Cefepime 2 GM in Sodium Chloride 0.9% 100 ML IVPB SCH ×2 (03:15→14:00)
[2022-06-27] MEDS: Linezolid 600 MG in Premix Bag 1 BAG IVPB SCH (05:26)
[2022-06-27 07:38] LABS: #Eosinphils 0.4 thou/uL (0.0-0.7); #Lymphocytes 1.9 thou/uL (1.20-3.40); #Monocytes 1.4 thou/uL (0.11-0.59); #Neutrophils 5.9 thou/uL (1.40-6.50); %Basophils 0.2 % (0.0-1.0); %Eosinophils 3.7 % (0.0-10.0); %Lymphocytes 19.4 % (21.0-51.0); %Monocytes 14.9 % (0.0-10.0); %Neutrophils 61.9 % (42.0-75.0); Hemoglobin 13.5 g/dL (12.0-16.0); Mean Corpuscular HGB CONC 34.6 g/dL (32.0-36.0); Mean Corpuscular Hemoglobin 30.6 pg (27.0-31.0); Mean Corpuscular Volume 88.5 fl (78.0-98.0); Mean Platelet Volume 7.5 fL (7.4-10.4); Platelet Count 283 10x3/uL (130-400); RBC Distribution Width 11.8 % (11.5-14.5); Red Blood Cell (RBC) Count 4.43 mill/uL (4.20-5.40); White Blood Cell (WBC) Count 9.6 10x3/uL (4.8-10.8)
[2022-06-27 07:55] LABS: Anion Gap 11 mmol/L (10-20); BUN (Urea Nitrogen) 9 mg/dL (9.8-20.1); Calc. Creatinine Clearance 235 mL/min (70-130); Carbon Dioxide 26 mmol/L (22-29); Chloride 103 mmol/L (98-107); Estimated GFR 109; Glucose 147 mg/dL (70-105); Potassium 3.6 mmol/L (3.5-5.1); Sodium 136 mmol/L (136-145)
[2022-06-27] MEDS: hydrALAZINE 25 MG TAB PO SCH ×2 (08:38→22:12)
[2022-06-27] MEDS: Aspirin 81 mg Enteric Coated Tablet PO SCH (08:38)
[2022-06-27] MEDS: metFORMIN 500 MG TAB PO SCH ×2 (08:38→17:19)
[2022-06-27] MEDS: Furosemide 20 MG TAB PO SCH (08:38)
[2022-06-27] MEDS: Insulin Glargine 30 UNITS/0.3 ML VIAL SC SCH ×2 (08:39→22:14)
[2022-06-27] MEDS ORDERED: FLU VACC QS2022-23(6MOS UP)/PF 60 MCG/0.5 ML SYRINGE IM ONE (09:00)
[2022-06-27] MEDS: Atorvastatin Calcium 20 MG TAB PO SCH (22:12)
[2022-06-27] MEDS: Acetaminophen 325 MG TAB PO PRN (22:14)
[2022-06-28 05:05] LABS: Bacteria/HPF None Seen HPF (None Seen); Bilirubin Negative (Negative); Blood, Urine 1+ (Negative); CAUTI Indications for Culture Dysuria,urgency,freq; Clarity Clear (Clear); Glucose, Urine (Dipstick) Normal (Negative); Ketone, Urine Negative (Negative); Leukocyte 75 Leu/uL (Negative); Nitrite Negative (Negative); Protein, Urine (Dipstick) Negative (Neg-Trace); Specific Gravity, Urine 1.005 (1.002-1.036); Squamous Epithelial 0-3 HPF (0-3); Urobilinogen Normal mg/dL (Less than 2); WBC/HPF 0-3 HPF (0-3); pH, Urine 6.5 (5.0-9.0)
[2022-06-28 05:20] LABS: Yeast-Hyphae 1+ HPF (None Seen)
[2022-06-28 05:21] LABS: Urine Culture Reflex No No
[2022-06-28 07:34] LABS: Hemoglobin 13.9 g/dL (12.0-16.0); Mean Corpuscular HGB CONC 32.8 g/dL (32.0-36.0); Mean Corpuscular Hemoglobin 29.1 pg (27.0-31.0); Mean Corpuscular Volume 88.7 fl (78.0-98.0); Mean Platelet Volume 7.5 fL (7.4-10.4); Platelet Count 322 10x3/uL (130-400); RBC Distribution Width 11.8 % (11.5-14.5); Red Blood Cell (RBC) Count 4.76 mill/uL (4.20-5.40); White Blood Cell (WBC) Count 10.6 10x3/uL (4.8-10.8)
[2022-06-28 07:49] LABS: Anion Gap 9 mmol/L (10-20); BUN (Urea Nitrogen) 8 mg/dL (9.8-20.1); Calc. Creatinine Clearance 258 mL/min (70-130); Calcium 8.4 mg/dL (7.8-10.44); Carbon Dioxide 29 mmol/L (22-29); Chloride 103 mmol/L (98-107); Estimated GFR 112; Glucose 72 mg/dL (70-105); Potassium 3.6 mmol/L (3.5-5.1); Sodium 137 mmol/L (136-145)
[2022-06-28] MEDS: hydrALAZINE 25 MG TAB PO SCH ×2 (08:16→21:43)
[2022-06-28] MEDS: Aspirin 81 mg Enteric Coated Tablet PO SCH (08:16)
[2022-06-28] MEDS: metFORMIN 500 MG TAB PO SCH ×2 (08:16→18:29)
[2022-06-28] MEDS: Furosemide 20 MG TAB PO SCH (08:17)
[2022-06-28] MEDS: Insulin Glargine 30 UNITS/0.3 ML VIAL SC SCH ×2 (08:17→21:43)
[2022-06-28 08:43] LABS: Band 3 % (5-11); Eosinophils 5 % (0-10); Lymphocytes 33 % (21-51); MDiff Complete? YES; Monocytes 12 % (0-10); Myelocyte 1 % (0-0); Neutrophil 45 % (42-75); RBC Morphology Normal
[2022-06-28] MEDS: Atorvastatin Calcium 20 MG TAB PO SCH (21:43)
[2022-06-29 07:41] VITALS: BP 146/91; TEMP 98.8
[2022-06-29] MEDS: metFORMIN 500 MG TAB PO SCH ×2 (08:56→17:45)
[2022-06-29] MEDS: hydrALAZINE 25 MG TAB PO SCH (08:56)
[2022-06-29] MEDS: Aspirin 81 mg Enteric Coated Tablet PO SCH (08:57)
[2022-06-29] MEDS: Furosemide 20 MG TAB PO SCH (08:57)
[2022-06-29] MEDS: Insulin Glargine 30 UNITS/0.3 ML VIAL SC SCH (08:58)
== END 2022-06-29 20:10 | disposition home health service (06) | DRG 872 ==
LOC: ERS 13:58 → ERHOLD 15:55 → 2NO 22:19 → SURG A 06-26 12:26
PROVIDERS: ADMIT Internal Medicine; ATTEND Family Medicine
DX: A41.9 Sepsis, unspecified organism (principal); L03.317 Cellulitis of buttock; Z68.42 Body mass index [BMI] 45.0-49.9, adult; Z20.822 Contact with and (suspected) exposure to COVID-19; E66.01 Morbid (severe) obesity due to excess calories; I10 Essential (primary) hypertension; E11.9 Type 2 diabetes mellitus without complications; T36.8X5A Adverse effect of other systemic antibiotics, initial encounter; F41.9 Anxiety disorder, unspecified; E78.5 Hyperlipidemia, unspecified; Z88.1 Allergy status to other antibiotic agents; Z79.84 Long term (current) use of oral hypoglycemic drugs; Z79.899 Other long term (current) drug therapy; Z79.82 Long term (current) use of aspirin; Z79.4 Long term (current) use of insulin; Z90.49 Acquired absence of other specified parts of digestive tract; Z90.710 Acquired absence of both cervix and uterus; Z82.49 Family history of ischemic heart disease and other diseases of the circulatory system
CPT/HCPCS: 36415; 36416; 71045; 74177; 80048; 80053; 81001; 82550; 83605; 84443; 84484; 85025; 86850; 86900; 86901; 87040; 87070; 87077; 87186; 87205; 93005; 96365; 96367; 97139; J0692; J1650; J1815; J2020; J3490; Q9967

== ENCOUNTER 2022-07-28 15:38 | Inpatient (IN) | payer SELFPAY ==
[2022-07-28] MEDS ORDERED: Norepinephrine 4 MG/4 ML VIAL ONE (15:52)
[2022-07-28] MEDS ORDERED: Cefepime 2 GM VIAL ONE (15:55)
[2022-07-28] MEDS ORDERED: Clindamycin/D5W 900 mg/50 ml Premix Bag ONE (15:55)
[2022-07-28] MEDS ORDERED: Acetaminophen 325 MG Suppository ONE (16:00)
[2022-07-28] MEDS ORDERED: Meropenem 1 GM in Sodium Chloride 0.9% 100 ML IVPB SCH (16:15)
[2022-07-28 16:23] LABS: Bilirubin Negative (Negative); Blood, Urine 3+ (Negative); Clarity Turbid (Clear); Glucose, Urine (Dipstick) 50 mg/dL (Negative); Ketone, Urine Negative (Negative); Leukocyte 500 Leu/uL (Negative); Nitrite Negative (Negative); Protein, Urine (Dipstick) 70 mg/dL (Neg-Trace); RBC/HPF None Seen HPF (0-3); Specific Gravity, Urine 1.023 (1.002-1.036); Urobilinogen Normal mg/dL (Less than 2); WBC/HPF Greater than 50 HPF (0-3)
[2022-07-28 16:29] LABS: Bacteria/HPF 1+ HPF (None Seen); Yeast-Budding 1+ HPF (None Seen)
[2022-07-28 16:30] LABS: Yeast-Hyphae 1+ HPF (None Seen)
[2022-07-28 16:39] LABS: Prothrombin Time 23.8 sec (12.0-14.7)
[2022-07-28 16:40] LABS: PTT 58.4 sec (22.9-36.1)
[2022-07-28 16:43] LABS: Hemoglobin 12.7 g/dL (12.0-16.0); Mean Corpuscular HGB CONC 32.4 g/dL (32.0-36.0); Mean Corpuscular Hemoglobin 29.4 pg (27.0-31.0); Mean Platelet Volume 8.1 fL (7.4-10.4); Platelet Count 88 10x3/uL (130-400); RBC Distribution Width 13.2 % (11.5-14.5); Red Blood Cell (RBC) Count 4.33 mill/uL (4.20-5.40); White Blood Cell (WBC) Count 15.3 10x3/uL (4.8-10.8)
[2022-07-28 16:46] LABS: Band 37 % (5-11); Lymphocytes 7 % (21-51); MDiff Complete? YES; Metamyelocyte 4 % (0-0); Monocytes 2 % (0-10); Myelocyte 2 % (0-0); Neutrophil 48 % (42-75); Nucleated RBC 1 % (0); Platelet Morphology Comment Appears Decreased; Polychromasia SLIGHT = 2-3 cells (100X) (0-2/hpf); Vacuoles SLIGHT
[2022-07-28 17:09] LABS: CKMB 3.1 ng/mL (0-6.6)
[2022-07-28] MEDS ORDERED: metroNIDAZOLE 500 MG/100 ML BAG ONE (17:20)
[2022-07-28] MEDS ORDERED: fentaNYL PF 100 MCG/2 ML SYRINGE ONE (17:26)
[2022-07-28 17:28] LABS: ALT (SGPT) 10 U/L (8-55); AST (SGOT) 40 U/L (5-34); Albumin 2.1 g/dL (3.5-5.0); Alkaline Phosphatase 193 U/L (40-110); BUN (Urea Nitrogen) 18 mg/dL (9.8-20.1); CK (CPK) 79 U/L (29-168); Calc. Creatinine Clearance 0 mL/min (70-130); Calcium 8.2 mg/dL (7.8-10.44); Carbon Dioxide 12 mmol/L (22-29); Chloride 104 mmol/L (98-107); Estimated GFR 62; Globulin 3.8 g/dL (2.4-3.5); Glucose 230 mg/dL (70-105); Potassium 3.9 mmol/L (3.5-5.1); Protein, Total 5.9 g/dL (6.0-8.3); Sodium 136 mmol/L (136-145)
[2022-07-28 17:32] LABS: Anion Gap 24 mmol/L (10-20)
[2022-07-28] MEDS ORDERED: Ketamine 50 MG/ML (10ML VIAL) ONE (17:34)
[2022-07-28] MEDS ORDERED: Rocuronium Bromide 10 MG/ML (10ML VIAL) ONE ×3 (17:34→18:15)
[2022-07-28] MEDS ORDERED: Electrolyte Replacement Protocol 1 EACH FS ONE (17:44)
[2022-07-28] MEDS ORDERED: Ventilator Sedation Protocol 1 EACH FS ONE (17:44)
[2022-07-28] MEDS ORDERED: Ventilator Sedation Protocol FS PRN (17:45)
[2022-07-28] MEDS ORDERED: EPINEPHrine 1 MG/10 ML Abboject SYRINGE ONE ×2 (17:46)
[2022-07-28] MEDS ORDERED: Ondansetron PF 4 MG/2 ML Vial IVP PRN (18:00)
[2022-07-28] MEDS ORDERED: Acetaminophen 650 MG Suppository PR PRN (18:00)
[2022-07-28] MEDS ORDERED: Propofol 1,000 MG/100 ML VIAL IV PRN (18:00)
[2022-07-28] MEDS ORDERED: Propofol BOLUS 1,000 MG/100 ML VIAL IV PRN (18:00)
[2022-07-28] MEDS ORDERED: Fentanyl BOLUS 250 ML IVPB PRN (18:00)
[2022-07-28] MEDS ORDERED: Electrolyte Replacement Protocol FS PRN (18:00)
[2022-07-28] MEDS ORDERED: Succinylcholine Chloride 100 MG/5 ML SYRINGE FS ONE (18:15)
[2022-07-28] MEDS ORDERED: Esmolol 100 MG/10 ML VIAL ONE (18:15)
[2022-07-28] MEDS ORDERED: HumaLOG 300 UNITS/3 ML VIAL SC PRN (18:21)
[2022-07-28] MEDS ORDERED: Dextrose 50% Abboject 50 ML SYRINGE SLOW IVP PRN (18:21)
[2022-07-28] MEDS ORDERED: Dextrose 5% in Water 1,000 ML IV PRN (18:21)
[2022-07-28] MEDS ORDERED: Nitroglycerin 50 MG/250 ML BOT 0 ML ONE (18:33)
[2022-07-28 19:47] LABS: Base Excess (BEa) -12.3 mEq/L (-2.0 to +3.0); CO2 Tension 32.5 mmHg (35.0-45.0); Calcium, Ionized (arterial) 1.08 mmol/L (1.12-1.30); Carboxyhemoglobin (COHb) 0.5 gm% (0.0-3.0); Hemoglobin (Hb) 13.5 g/dL (12.0-16.0); O2 Tension (PaO2), arterial 79.2 mmHg (80.0-100.0); Potassium - ABG Lab 3.37 mmol/L (3.70-5.30); pH, Arterial 7.25 (7.35-7.45)
[2022-07-28 20:02] LABS: ALV-art Gradient 593.175 mmHg (0-20); Actual Bicarbonate (HCO3a) 13.8 mEq/L (22-28); Puncture Site Arterial Line
[2022-07-28] MEDS ORDERED: Fentanyl CADD 100 ML ONE (20:02)
[2022-07-28] MEDS: Fentanyl CADD 100 ML IV SCH (20:20)
[2022-07-28] MEDS ORDERED: Piperacillin/Tazobactam 3.375 GM in Sodium Chloride 0.9% 100 ML IVPB SCH (20:30)
[2022-07-28 20:36] LABS: Troponin I 12.844 ng/mL (< 0.028)
[2022-07-28] MEDS ORDERED: Albumin 25% 25 GM/100 ML BOT IVPB SCH (20:45)
[2022-07-28] MEDS: Sodium Bicarbonate 70 MEQ in Sodium Chloride 0.45% 1,000 ML IV SCH (20:57)
[2022-07-28] MEDS: Linezolid 600 MG in Premix Bag 1 BAG IVPB SCH (20:58)
[2022-07-28] MEDS: NOREPINEPHRINE 8 MG/250 ML-D5W 250 ML IVPB SCH (20:58)
[2022-07-28] MEDS ORDERED: Aspirin 300 MG Suppository PR SCH (21:00)
[2022-07-28] MEDS ORDERED: Heparin 10,000 UNITS/ 10 ML VIAL SLOW IVP SCH (22:15)
[2022-07-28] MEDS ORDERED: Heparin 25,000 units/D5W 500 ML IVPB SCH (22:40)
[2022-07-28 23:17] LABS: Hemoglobin 11.7 g/dL (12.0-16.0); Platelet Count 55 10x3/uL (130-400)
[2022-07-28] MEDS ORDERED: Nystatin Powder 15 GM BOT TOP PRN (23:29)
[2022-07-28 23:50] LABS: PTT Greater than 250.0 sec (22.9-36.1)
[2022-07-29] MEDS: Clindamycin/D5W 900 MG in Premix Bag 1 BAG IVPB SCH ×4 (00:28→23:22)
[2022-07-29] MEDS: Piperacillin/Tazobactam 3.375 GM in Sodium Chloride 0.9% 100 ML IVPB SCH ×2 (00:28→09:09)
[2022-07-29] MEDS: HumaLOG 300 UNITS/3 ML VIAL SC PRN ×3 (00:53→09:09)
[2022-07-29] MEDS: Sodium Bicarbonate 70 MEQ in Sodium Chloride 0.45% 1,000 ML IV SCH ×3 (02:39→20:49)
[2022-07-29] MEDS ORDERED: Lactated Ringer's 1,000 ML IV SCH (02:45)
[2022-07-29 04:26] LABS: Hemoglobin A1c 9.6 % (4.0-6.0)
[2022-07-29 04:38] LABS: ALT (SGPT) 18 U/L (8-55); AST (SGOT) 89 U/L (5-34); Alkaline Phosphatase 123 U/L (40-110); Bilirubin, Direct 0.6 mg/dL (0.1-0.3); Protein, Total 5.6 g/dL (6.0-8.3)
[2022-07-29 04:52] LABS: ALT (SGPT) 16 U/L (8-55); AST (SGOT) 87 U/L (5-34); Albumin 2.2 g/dL (3.5-5.0); Alkaline Phosphatase 128 U/L (40-110); Anion Gap 16 mmol/L (10-20); BUN (Urea Nitrogen) 21 mg/dL (9.8-20.1); Bilirubin, Total 1.1 mg/dL (0.2-1.2); Calc. Creatinine Clearance 77 mL/min (70-130); Calcium 7.2 mg/dL (7.8-10.44); Carbon Dioxide 15 mmol/L (22-29); Chloride 101 mmol/L (98-107); Estimated GFR 37; Globulin 3.4 g/dL (2.4-3.5); Glucose 334 mg/dL (70-105); Magnesium 1.3 mg/dL (1.6-2.6); Potassium 3.3 mmol/L (3.5-5.1); Protein, Total 5.6 g/dL (6.0-8.3); Sodium 129 mmol/L (136-145)
[2022-07-29 04:56] LABS: Band 34 % (5-11); Eosinophils 3 % (0-10); Hemoglobin 11.5 g/dL (12.0-16.0); Hypochromia SLIGHT = 6-15 cells (100X) (0-5/hpf); MDiff Complete? YES; Mean Corpuscular HGB CONC 33.3 g/dL (32.0-36.0); Mean Corpuscular Hemoglobin 29.4 pg (27.0-31.0); Mean Corpuscular Volume 88.3 fl (78.0-98.0); Mean Platelet Volume 9.6 fL (7.4-10.4); Monocytes 3 % (0-10); Neutrophil 60 % (42-75); Platelet Count 54 10x3/uL (130-400); Platelet Morphology Comment Appears Decreased; RBC Distribution Width 13.3 % (11.5-14.5); Red Blood Cell (RBC) Count 3.93 mill/uL (4.20-5.40)
[2022-07-29] MEDS ORDERED: Sodium Chloride 0.9% 1,000 ML IV SCH ×2 (05:15→14:45)
[2022-07-29] MEDS ORDERED: Magnesium Sulfate In Water 4 GM in Premix Bag 1 BAG IVPB SCH (06:00)
[2022-07-29 07:54] LABS: Actual Bicarbonate (HCO3a) 17.6 mEq/L (22-28); Base Excess (BEa) -4.2 mEq/L (-2.0 to +3.0); Calcium, Ionized (arterial) 1.05 mmol/L (1.12-1.30); Carboxyhemoglobin (COHb) 0.1 gm% (0.0-3.0); Hemoglobin (Hb) 12.3 g/dL (12.0-16.0); O2 Tension (PaO2), arterial 316.6 mmHg (80.0-100.0); Potassium - ABG Lab 3.47 mmol/L (3.70-5.30); pH, Arterial 7.48 (7.35-7.45)
[2022-07-29 07:58] LABS: Puncture Site Arterial Line
[2022-07-29] MEDS ORDERED: Potassium Bicarbonate/Cit Ac 20 MEQ TAB PER TUBE SCH (08:00)
[2022-07-29] MEDS ORDERED: FLU VACC QS2022-23(6MOS UP)/PF 60 MCG/0.5 ML SYRINGE IM ONE (09:00)
[2022-07-29] MEDS ORDERED: Insulin NPH Human Isophane 100 UNIT/ML (10 ML VIAL) SC SCH (09:00)
[2022-07-29] MEDS ORDERED: NPH, Human Insulin Isophane 300 UNIT/3 ML VIAL SC SCH (09:00)
[2022-07-29] MEDS: Pantoprazole 40 MG VIAL IVP SCH (09:08)
[2022-07-29] MEDS: Aspirin Chewable 81 MG TAB PER TUBE SCH (09:08)
[2022-07-29] MEDS: Linezolid 600 MG in Premix Bag 1 BAG IVPB SCH (09:09)
[2022-07-29] MEDS ORDERED: HUMULIN R 100 UNITS in Sodium Chloride 0.9% 100 ML IVPB SCH (09:45)
[2022-07-29] MEDS ORDERED: Meropenem 2 GM, Admixture Fee 1 EACH in Sodium Chloride 0.9% 100 ML IVPB SCH (10:45)
[2022-07-29] MEDS: Ibuprofen 100 MG/5 ML UDCUP PO PRN ×2 (10:51→20:50)
[2022-07-29] MEDS: Lorazepam 2 MG/ML VIAL SLOW IVP PRN ×2 (13:07→21:32)
[2022-07-29] MEDS: NOREPINEPHRINE 8 MG/250 ML-D5W 250 ML IVPB SCH ×2 (14:54→20:49)
[2022-07-29] MEDS: Vasopressin 20 UNIT, Admixture Fee 1 EACH in Sodium Chloride 0.9% 50 ML IV SCH ×2 (15:20→20:49)
[2022-07-29] MEDS: DAPTOmycin 700 MG in Sodium Chloride 0.9% 100 ML IVPB SCH (15:22)
[2022-07-29] MEDS: Meropenem 2 GM, Admixture Fee 1 EACH in Sodium Chloride 0.9% 100 ML IVPB SCH (17:41)
[2022-07-29] MEDS: Atorvastatin Calcium 40 MG TAB PER TUBE SCH (20:49)
[2022-07-29] MEDS ORDERED: Fentanyl CADD 100 ML ONE (22:00)
[2022-07-29] MEDS: Fentanyl CADD 100 ML IV SCH (22:02)
[2022-07-29] MEDS: Acetaminophen 325 MG TAB PO PRN (23:01)
[2022-07-29 23:36] LABS: Anion Gap 15 mmol/L (10-20); BUN (Urea Nitrogen) 23 mg/dL (9.8-20.1); Calc. Creatinine Clearance 111 mL/min (70-130); Carbon Dioxide 17 mmol/L (22-29); Chloride 103 mmol/L (98-107); Estimated GFR 58; Glucose 167 mg/dL (70-105); Magnesium 1.9 mg/dL (1.6-2.6); Potassium 3.7 mmol/L (3.5-5.1); Sodium 131 mmol/L (136-145)
[2022-07-30] MEDS ORDERED: Magnesium 2 GM/50 ML(in water) 2 GM in Premix Bag 1 BAG IVPB SCH (02:00)
[2022-07-30] MEDS: Meropenem 2 GM, Admixture Fee 1 EACH in Sodium Chloride 0.9% 100 ML IVPB SCH ×3 (02:03→19:08)
[2022-07-30] MEDS: NOREPINEPHRINE 8 MG/250 ML-D5W 250 ML IVPB SCH ×5 (02:04→20:13)
[2022-07-30] MEDS ORDERED: HumaLOG 300 UNITS/3 ML VIAL SC PRN ×2 (02:45→14:37)
[2022-07-30 03:52] LABS: Hemoglobin 11.9 g/dL (12.0-16.0); Mean Corpuscular HGB CONC 32.7 g/dL (32.0-36.0); Mean Corpuscular Hemoglobin 28.6 pg (27.0-31.0); Mean Corpuscular Volume 87.3 fl (78.0-98.0); Mean Platelet Volume 9.7 fL (7.4-10.4); Platelet Count 79 10x3/uL (130-400); RBC Distribution Width 13.5 % (11.5-14.5); Red Blood Cell (RBC) Count 4.16 mill/uL (4.20-5.40); White Blood Cell (WBC) Count 37.1 10x3/uL (4.8-10.8)
[2022-07-30 04:12] LABS: ALT (SGPT) 32 U/L (8-55); AST (SGOT) 122 U/L (5-34); Albumin 1.8 g/dL (3.5-5.0); Alkaline Phosphatase 126 U/L (40-110); Anion Gap 16 mmol/L (10-20); BUN (Urea Nitrogen) 24 mg/dL (9.8-20.1); Bilirubin, Total 0.9 mg/dL (0.2-1.2); CK (CPK) 347 U/L (29-168); Calc. Creatinine Clearance 110 mL/min (70-130); Carbon Dioxide 17 mmol/L (22-29); Chloride 101 mmol/L (98-107); Estimated GFR 58; Globulin 3.5 g/dL (2.4-3.5); Glucose 192 mg/dL (70-105); Magnesium 2.3 mg/dL (1.6-2.6); Potassium 3.6 mmol/L (3.5-5.1); Protein, Total 5.3 g/dL (6.0-8.3); Sodium 130 mmol/L (136-145)
[2022-07-30] MEDS: Vasopressin 20 UNIT, Admixture Fee 1 EACH in Sodium Chloride 0.9% 50 ML IV SCH ×3 (04:40→22:03)
[2022-07-30] MEDS: Sodium Bicarbonate 70 MEQ in Sodium Chloride 0.45% 1,000 ML IV SCH ×2 (04:40→19:17)
[2022-07-30 04:46] LABS: Band 3 % (5-11); Crenated RBC SLIGHT = 1-5 cells (100X) (None Seen); Lymphocytes 7 % (21-51); MDiff Complete? YES; Monocytes 8 % (0-10); Neutrophil 82 % (42-75); Platelet Morphology Comment Appears Decreased; Polychromasia SLIGHT = 2-3 cells (100X) (0-2/hpf); Vacuoles SLIGHT
[2022-07-30 08:24] LABS: Actual Bicarbonate (HCO3a) 18.8 mEq/L (22-28); Base Excess (BEa) -5.4 mEq/L (-2.0 to +3.0); CO2 Tension 32.5 mmHg (35.0-45.0); Calcium, Ionized (arterial) 0.93 mmol/L (1.12-1.30); Carboxyhemoglobin (COHb) 0.4 gm% (0.0-3.0); Hemoglobin (Hb) 12.4 g/dL (12.0-16.0); O2 Tension (PaO2), arterial 142.2 mmHg (80.0-100.0); Potassium - ABG Lab 3.32 mmol/L (3.70-5.30); pH, Arterial 7.38 (7.35-7.45)
[2022-07-30 08:27] LABS: ALV-art Gradient 138.025 mmHg (0-20); Puncture Site LRA
[2022-07-30] MEDS: Aspirin Chewable 81 MG TAB PER TUBE SCH (09:11)
[2022-07-30] MEDS: Clindamycin/D5W 900 MG in Premix Bag 1 BAG IVPB SCH ×2 (09:12→15:53)
[2022-07-30] MEDS: Pantoprazole 40 MG VIAL IVP SCH (09:13)
[2022-07-30] MEDS ORDERED: Fentanyl CADD 100 ML ONE (13:22)
[2022-07-30] MEDS: Fentanyl CADD 100 ML IV SCH (13:25)
[2022-07-30] MEDS: DAPTOmycin 700 MG in Sodium Chloride 0.9% 100 ML IVPB SCH (15:53)
[2022-07-30] MEDS: Acetaminophen 325 MG TAB PO PRN (19:56)
[2022-07-30] MEDS: Atorvastatin Calcium 40 MG TAB PER TUBE SCH (19:57)
[2022-07-30] MEDS: HumaLOG 300 UNITS/3 ML VIAL SC PRN ×2 (20:07→23:34)
[2022-07-30] MEDS ORDERED: Sodium Chloride 0.9% 1,000 ML IV SCH (21:30)
[2022-07-30 22:39] LABS: Platelet Count 85 10x3/uL (130-400)
[2022-07-30] MEDS: Albumin 25% 25 GM/100 ML BOT IVPB SCH (23:14)
[2022-07-30] MEDS: methylPREDNISolone Sod Succ 40 MG VIAL IVP SCH (23:14)
[2022-07-31] MEDS: NOREPINEPHRINE 8 MG/250 ML-D5W 250 ML IVPB SCH ×2 (01:03→16:33)
[2022-07-31] MEDS: Meropenem 2 GM, Admixture Fee 1 EACH in Sodium Chloride 0.9% 100 ML IVPB SCH ×2 (01:46→09:41)
[2022-07-31] MEDS ORDERED: Fentanyl CADD 100 ML ONE ×2 (02:48→18:45)
[2022-07-31] MEDS: Fentanyl CADD 100 ML IV SCH ×2 (02:53→19:05)
[2022-07-31 04:47] LABS: Hemoglobin 10.7 g/dL (12.0-16.0); Mean Corpuscular HGB CONC 33.3 g/dL (32.0-36.0); Mean Corpuscular Hemoglobin 29.5 pg (27.0-31.0); Mean Corpuscular Volume 88.5 fl (78.0-98.0); Platelet Count 85 10x3/uL (130-400); RBC Distribution Width 13.5 % (11.5-14.5); Red Blood Cell (RBC) Count 3.63 mill/uL (4.20-5.40); White Blood Cell (WBC) Count 23.6 10x3/uL (4.8-10.8)
[2022-07-31 05:09] LABS: ALT (SGPT) 27 U/L (8-55); AST (SGOT) 83 U/L (5-34); Albumin 2.2 g/dL (3.5-5.0); Alkaline Phosphatase 123 U/L (40-110); Anion Gap 14 mmol/L (10-20); BUN (Urea Nitrogen) 32 mg/dL (9.8-20.1); Calc. Creatinine Clearance 156 mL/min (70-130); Carbon Dioxide 20 mmol/L (22-29); Chloride 97 mmol/L (98-107); Estimated GFR 82; Globulin 3.4 g/dL (2.4-3.5); Glucose 288 mg/dL (70-105); Magnesium 2.2 mg/dL (1.6-2.6); Potassium 3.6 mmol/L (3.5-5.1); Protein, Total 5.6 g/dL (6.0-8.3); Sodium 127 mmol/L (136-145)
[2022-07-31 05:14] LABS: Band 13 % (5-11); Lymphocytes 6 % (21-51); MDiff Complete? YES; Neutrophil 81 % (42-75); Platelet Morphology Comment Appears Decreased
[2022-07-31 05:23] LABS: Calcium 6.7 mg/dL (7.8-10.44)
[2022-07-31] MEDS: HumaLOG 300 UNITS/3 ML VIAL SC PRN ×3 (05:52→17:22)
[2022-07-31] MEDS: methylPREDNISolone Sod Succ 40 MG VIAL IVP SCH ×3 (05:52→16:33)
[2022-07-31] MEDS: Vasopressin 20 UNIT, Admixture Fee 1 EACH in Sodium Chloride 0.9% 50 ML IV SCH ×2 (05:53→16:33)
[2022-07-31] MEDS: Sodium Bicarbonate 70 MEQ in Sodium Chloride 0.45% 1,000 ML IV SCH ×2 (05:53→15:39)
[2022-07-31] MEDS: Albumin 25% 25 GM/100 ML BOT IVPB SCH ×3 (05:53→16:33)
[2022-07-31 07:29] LABS: Actual Bicarbonate (HCO3a) 23.9 mEq/L (22-28); Base Excess (BEa) -0.2 mEq/L (-2.0 to +3.0); CO2 Tension 36.8 mmHg (35.0-45.0); Calcium, Ionized (arterial) 0.94 mmol/L (1.12-1.30); Carboxyhemoglobin (COHb) 0.1 gm% (0.0-3.0); Hemoglobin (Hb) 10.5 g/dL (12.0-16.0); O2 Tension (PaO2), arterial 133.7 mmHg (80.0-100.0); Potassium - ABG Lab 3.51 mmol/L (3.70-5.30); pH, Arterial 7.43 (7.35-7.45)
[2022-07-31 07:37] LABS: Puncture Site Arterial Line
[2022-07-31] MEDS ORDERED: Sodium Chloride 0.9% 1,000 ML IV SCH (08:30)
[2022-07-31] MEDS: Sodium Chloride 0.45% 1,000 ML IV SCH ×2 (09:41→16:32)
[2022-07-31] MEDS: Aspirin Chewable 81 MG TAB PER TUBE SCH (09:42)
[2022-07-31] MEDS: cefTRIAXone\\ROCEPHIN 2 GM in Sodium Chloride 0.9% 100 ML IVPB SCH (15:38)
[2022-08-01] MEDS: Albumin 25% 25 GM/100 ML BOT IVPB SCH (00:35)
[2022-08-01] MEDS: methylPREDNISolone Sod Succ 40 MG VIAL IVP SCH ×4 (00:35→17:26)
[2022-08-01] MEDS: HumaLOG 300 UNITS/3 ML VIAL SC PRN ×5 (00:41→21:04)
[2022-08-01 04:17] LABS: Mean Corpuscular HGB CONC 32.5 g/dL (32.0-36.0); Mean Corpuscular Hemoglobin 28.5 pg (27.0-31.0); Mean Corpuscular Volume 87.6 fl (78.0-98.0); Mean Platelet Volume 9.6 fL (7.4-10.4); Platelet Count 60 10x3/uL (130-400); RBC Distribution Width 13.3 % (11.5-14.5); Red Blood Cell (RBC) Count 3.15 mill/uL (4.20-5.40); White Blood Cell (WBC) Count 16.3 10x3/uL (4.8-10.8)
[2022-08-01 04:35] LABS: ALT (SGPT) 20 U/L (8-55); AST (SGOT) 47 U/L (5-34); Albumin 2.9 g/dL (3.5-5.0); Alkaline Phosphatase 99 U/L (40-110); Anion Gap 16 mmol/L (10-20); BUN (Urea Nitrogen) 43 mg/dL (9.8-20.1); Bilirubin, Total 0.8 mg/dL (0.2-1.2); Calc. Creatinine Clearance 123 mL/min (70-130); Calcium 7.3 mg/dL (7.8-10.44); Carbon Dioxide 21 mmol/L (22-29); Chloride 96 mmol/L (98-107); Estimated GFR 60; Globulin 2.8 g/dL (2.4-3.5); Glucose 360 mg/dL (70-105); Magnesium 2.3 mg/dL (1.6-2.6); Potassium 3.8 mmol/L (3.5-5.1); Protein, Total 5.7 g/dL (6.0-8.3); Sodium 129 mmol/L (136-145)
[2022-08-01 04:49] LABS: Band 3 % (5-11); Lymphocytes 11 % (21-51); MDiff Complete? YES; Monocytes 2 % (0-10); Neutrophil 84 % (42-75); Platelet Morphology Comment Appears Decreased; Polychromasia SLIGHT = 2-3 cells (100X) (0-2/hpf)
[2022-08-01] MEDS: Sodium Bicarbonate 70 MEQ in Sodium Chloride 0.45% 1,000 ML IV SCH ×2 (05:04→10:48)
[2022-08-01] MEDS: Sodium Chloride 0.45% 1,000 ML IV SCH ×3 (05:30→17:26)
[2022-08-01 07:33] LABS: Actual Bicarbonate (HCO3a) 22.8 mEq/L (22-28); Base Excess (BEa) -1.1 mEq/L (-2.0 to +3.0); CO2 Tension 35.8 mmHg (35.0-45.0); O2 Tension (PaO2), arterial 94.1 mmHg (80.0-100.0); pH, Arterial 7.42 (7.35-7.45)
[2022-08-01 07:34] LABS: Potassium - ABG Lab 3.52 mmol/L (3.70-5.30); Puncture Site LRA
[2022-08-01] MEDS: Aspirin Chewable 81 MG TAB PER TUBE SCH (09:47)
[2022-08-01] MEDS: cefTRIAXone\\ROCEPHIN 2 GM in Sodium Chloride 0.9% 100 ML IVPB SCH (13:28)
[2022-08-02] MEDS: HumaLOG 300 UNITS/3 ML VIAL SC PRN ×6 (00:46→23:55)
[2022-08-02] MEDS: methylPREDNISolone Sod Succ 40 MG VIAL IVP SCH ×5 (00:48→23:13)
[2022-08-02 04:27] LABS: Mean Corpuscular HGB CONC 34.8 g/dL (32.0-36.0); Mean Corpuscular Hemoglobin 30.4 pg (27.0-31.0); Mean Corpuscular Volume 87.3 fl (78.0-98.0); Platelet Count 58 10x3/uL (130-400); RBC Distribution Width 13.3 % (11.5-14.5); Red Blood Cell (RBC) Count 3.31 mill/uL (4.20-5.40); White Blood Cell (WBC) Count 21.7 10x3/uL (4.8-10.8)
[2022-08-02 04:44] LABS: Magnesium 2.5 mg/dL (1.6-2.6)
[2022-08-02 04:50] LABS: Band 1 % (5-11); Lymphocytes 4 % (21-51); MDiff Complete? YES; Monocytes 7 % (0-10); Neutrophil 88 % (42-75); Platelet Morphology Comment Appears Decreased
[2022-08-02] MEDS: Aspirin Chewable 81 MG TAB PER TUBE SCH (07:13)
[2022-08-02] MEDS: Sodium Chloride 0.45% 1,000 ML IV SCH (07:15)
[2022-08-02] MEDS: cefTRIAXone\\ROCEPHIN 2 GM in Sodium Chloride 0.9% 100 ML IVPB SCH (11:56)
[2022-08-02] MEDS: Morphine 4 MG/ML VIAL SLOW IVP PRN ×2 (12:13→17:22)
[2022-08-02] MEDS ORDERED: Furosemide 40 MG/4 ML VIAL IVP SCH (14:39)
[2022-08-02] MEDS ORDERED: Albumin 25% 25 GM/100 ML BOT IVPB SCH (14:39)
[2022-08-02] MEDS: Albumin 25% 25 GM/100 ML BOT IVPB SCH ×2 (17:27→23:13)
[2022-08-02] MEDS ORDERED: Furosemide 40 MG/4 ML VIAL SLOW IVP SCH (18:00)
[2022-08-02] MEDS ORDERED: hydrALAZINE 20 MG/ML VIAL SLOW IVP PRN (18:00)
[2022-08-02] MEDS ORDERED: Insulin Glargine 30 UNITS/0.3 ML VIAL SC SCH (18:00)
[2022-08-02] MEDS: Dexmedetomidine 1,000 MCG in Sodium Chloride 0.9% 250 ML 240 ML IVPB SCH (21:33)
[2022-08-03 04:34] LABS: Hemoglobin 9.7 g/dL (12.0-16.0); Mean Corpuscular HGB CONC 33.2 g/dL (32.0-36.0); Mean Corpuscular Hemoglobin 28.8 pg (27.0-31.0); Mean Corpuscular Volume 86.7 fl (78.0-98.0); Mean Platelet Volume 10.6 fL (7.4-10.4); Platelet Count 55 10x3/uL (130-400); RBC Distribution Width 13.6 % (11.5-14.5); Red Blood Cell (RBC) Count 3.38 mill/uL (4.20-5.40); White Blood Cell (WBC) Count 12.7 10x3/uL (4.8-10.8)
[2022-08-03 04:59] LABS: ALT (SGPT) 18 U/L (8-55); AST (SGOT) 38 U/L (5-34); Albumin 3.3 g/dL (3.5-5.0); Alkaline Phosphatase 104 U/L (40-110); Anion Gap 12 mmol/L (10-20); BUN (Urea Nitrogen) 68 mg/dL (9.8-20.1); Bilirubin, Total 0.9 mg/dL (0.2-1.2); Calc. Creatinine Clearance 114 mL/min (70-130); Calcium 8.1 mg/dL (7.8-10.44); Carbon Dioxide 25 mmol/L (22-29); Chloride 98 mmol/L (98-107); Estimated GFR 54; Globulin 2.9 g/dL (2.4-3.5); Glucose 285 mg/dL (70-105); Magnesium 2.4 mg/dL (1.6-2.6); Protein, Total 6.2 g/dL (6.0-8.3); Sodium 131 mmol/L (136-145)
[2022-08-03] MEDS: methylPREDNISolone Sod Succ 40 MG VIAL IVP SCH ×3 (05:14→22:23)
[2022-08-03] MEDS: Albumin 25% 25 GM/100 ML BOT IVPB SCH ×2 (05:14→13:03)
[2022-08-03] MEDS: HumaLOG 300 UNITS/3 ML VIAL SC PRN ×4 (05:15→21:11)
[2022-08-03 05:28] LABS: Band 1 % (5-11); Lymphocytes 8 % (21-51); MDiff Complete? YES; Monocytes 6 % (0-10); Neutrophil 85 % (42-75); Platelet Morphology Comment Appears Decreased; Polychromasia SLIGHT = 2-3 cells (100X) (0-2/hpf)
[2022-08-03] MEDS: Aspirin Chewable 81 MG TAB PER TUBE SCH (08:24)
[2022-08-03] MEDS ORDERED: Insulin Glargine 30 UNITS/0.3 ML VIAL SC SCH (09:00)
[2022-08-03] MEDS ORDERED: Spironolactone 25 MG TAB PO SCH (09:45)
[2022-08-03] MEDS: cefTRIAXone\\ROCEPHIN 2 GM in Sodium Chloride 0.9% 100 ML IVPB SCH (12:29)
[2022-08-03] MEDS: Acetaminophen 325 MG TAB PO PRN (12:32)
[2022-08-03] MEDS: Furosemide 20 MG/2 ML VIAL SLOW IVP SCH (12:32)
[2022-08-03] MEDS: HumaLOG 300 UNITS/3 ML VIAL SC SCH ×3 (12:34→21:12)
[2022-08-03] MEDS: Morphine 4 MG/ML VIAL SLOW IVP PRN (12:36)
[2022-08-03] MEDS: Dexmedetomidine 1,000 MCG in Sodium Chloride 0.9% 250 ML 240 ML IVPB SCH (19:12)
[2022-08-03 23:08] LABS: Hemoglobin 9.7 g/dL (12.0-16.0); Platelet Count 71 10x3/uL (130-400)
[2022-08-04] MEDS: HumaLOG 300 UNITS/3 ML VIAL SC PRN ×5 (00:43→16:05)
[2022-08-04] MEDS: HumaLOG 300 UNITS/3 ML VIAL SC SCH ×6 (00:44→20:47)
[2022-08-04 04:35] LABS: Hemoglobin 9.8 g/dL (12.0-16.0); Mean Corpuscular HGB CONC 33.2 g/dL (32.0-36.0); Mean Corpuscular Hemoglobin 29.1 pg (27.0-31.0); Mean Corpuscular Volume 87.4 fl (78.0-98.0); Platelet Count 77 10x3/uL (130-400); RBC Distribution Width 13.8 % (11.5-14.5); Red Blood Cell (RBC) Count 3.36 mill/uL (4.20-5.40); White Blood Cell (WBC) Count 11.7 10x3/uL (4.8-10.8)
[2022-08-04 04:44] LABS: Anion Gap 10 mmol/L (10-20); BUN (Urea Nitrogen) 81 mg/dL (9.8-20.1); Calc. Creatinine Clearance 151 mL/min (70-130); Calcium 8.1 mg/dL (7.8-10.44); Carbon Dioxide 26 mmol/L (22-29); Chloride 101 mmol/L (98-107); Estimated GFR 74; Glucose 203 mg/dL (70-105); Magnesium 2.3 mg/dL (1.6-2.6); Potassium 4.2 mmol/L (3.5-5.1); Sodium 133 mmol/L (136-145)
[2022-08-04] MEDS: Dexmedetomidine 1,000 MCG in Sodium Chloride 0.9% 250 ML 240 ML IVPB SCH (04:55)
[2022-08-04 05:17] LABS: Band 4 % (5-11); Lymphocytes 10 % (21-51); MDiff Complete? YES; Monocytes 7 % (0-10); Neutrophil 79 % (42-75); Nucleated RBC 2 % (0); Platelet Morphology Comment Appears Decreased
[2022-08-04] MEDS: Furosemide 20 MG/2 ML VIAL SLOW IVP SCH ×2 (06:25→13:20)
[2022-08-04] MEDS: methylPREDNISolone Sod Succ 40 MG VIAL IVP SCH ×3 (06:25→22:10)
[2022-08-04] MEDS: Acetaminophen 325 MG TAB PO PRN (08:30)
[2022-08-04] MEDS: Zinc Sulfate 220 MG CAP PO SCH (08:30)
[2022-08-04] MEDS: Spironolactone 25 MG TAB PO SCH (08:30)
[2022-08-04] MEDS: Ascorbic Acid 500 mg Chewable Tablet PO SCH (08:31)
[2022-08-04] MEDS: Aspirin Chewable 81 MG TAB PER TUBE SCH (08:31)
[2022-08-04] MEDS ORDERED: Potassium Bicarbonate/Cit Ac 20 MEQ TAB PO SCH (10:30)
[2022-08-04] MEDS: Morphine 4 MG/ML VIAL SLOW IVP PRN (11:02)
[2022-08-04] MEDS: cefTRIAXone\\ROCEPHIN 2 GM in Sodium Chloride 0.9% 100 ML IVPB SCH (13:20)
[2022-08-05] MEDS: HumaLOG 300 UNITS/3 ML VIAL SC PRN (00:57)
[2022-08-05] MEDS: HumaLOG 300 UNITS/3 ML VIAL SC SCH ×6 (00:58→23:08)
[2022-08-05] MEDS: Morphine 4 MG/ML VIAL SLOW IVP PRN ×3 (01:31→17:52)
[2022-08-05] MEDS: Acetaminophen 325 MG TAB PO PRN (01:34)
[2022-08-05 04:55] LABS: Mean Corpuscular HGB CONC 32.5 g/dL (32.0-36.0); Mean Corpuscular Hemoglobin 28.8 pg (27.0-31.0); Mean Corpuscular Volume 88.7 fl (78.0-98.0); Mean Platelet Volume 10.3 fL (7.4-10.4); Platelet Count 114 10x3/uL (130-400); RBC Distribution Width 14.2 % (11.5-14.5); Red Blood Cell (RBC) Count 3.47 mill/uL (4.20-5.40); White Blood Cell (WBC) Count 15.7 10x3/uL (4.8-10.8)
[2022-08-05 05:17] LABS: Anion Gap 12 mmol/L (10-20); BUN (Urea Nitrogen) 79 mg/dL (9.8-20.1); Calc. Creatinine Clearance 215 mL/min (70-130); Calcium 7.9 mg/dL (7.8-10.44); Carbon Dioxide 26 mmol/L (22-29); Chloride 105 mmol/L (98-107); Estimated GFR 105; Glucose 137 mg/dL (70-105); Magnesium 2.2 mg/dL (1.6-2.6); Potassium 4.5 mmol/L (3.5-5.1); Sodium 138 mmol/L (136-145)
[2022-08-05] MEDS: Furosemide 20 MG/2 ML VIAL SLOW IVP SCH (05:39)
[2022-08-05] MEDS: methylPREDNISolone Sod Succ 40 MG VIAL IVP SCH ×2 (05:39→20:06)
[2022-08-05] MEDS: Dexmedetomidine 1,000 MCG in Sodium Chloride 0.9% 250 ML 240 ML IVPB SCH (05:40)
[2022-08-05 05:41] LABS: Band 3 % (5-11); Lymphocytes 5 % (21-51); MDiff Complete? YES; Monocytes 8 % (0-10); Neutrophil 84 % (42-75); Platelet Morphology Comment Appears Decreased; Polychromasia SLIGHT = 2-3 cells (100X) (0-2/hpf)
[2022-08-05] MEDS: Ascorbic Acid 500 mg Chewable Tablet PO SCH (08:21)
[2022-08-05] MEDS: Spironolactone 25 MG TAB PO SCH (08:21)
[2022-08-05] MEDS: Zinc Sulfate 220 MG CAP PO SCH (08:21)
[2022-08-05] MEDS: Aspirin Chewable 81 MG TAB PER TUBE SCH (08:21)
[2022-08-05] MEDS ORDERED: Aquaphor 10 GM TUBE TOP SCH (10:00)
[2022-08-05] MEDS: Furosemide 40 MG/4 ML VIAL SLOW IVP SCH ×3 (12:28→23:03)
[2022-08-05] MEDS: cefTRIAXone\\ROCEPHIN 2 GM in Sodium Chloride 0.9% 100 ML IVPB SCH (12:29)
[2022-08-05] MEDS: Heparin 5,000 UNITS/ML VIAL SC SCH ×2 (16:20→20:06)
[2022-08-05 18:42] LABS: Glucose 142 mg/dL (70-105)
[2022-08-05 19:11] LABS: Anion Gap 13 mmol/L (10-20); BUN (Urea Nitrogen) 74 mg/dL (9.8-20.1); Calc. Creatinine Clearance 217 mL/min (70-130); Calcium 8.3 mg/dL (7.8-10.44); Carbon Dioxide 26 mmol/L (22-29); Chloride 105 mmol/L (98-107); Estimated GFR 105; Potassium 4.3 mmol/L (3.5-5.1); Sodium 140 mmol/L (136-145)
[2022-08-05 22:35] LABS: Hemoglobin 10.6 g/dL (12.0-16.0); Platelet Count 162 10x3/uL (130-400)
[2022-08-06 05:17] LABS: Anisocytosis SLIGHT = 6-15 cells (100X) (0-5/hpf); Band 2 % (5-11); Hemoglobin 10.4 g/dL (12.0-16.0); Lymphocytes 3 % (21-51); MDiff Complete? YES; Mean Corpuscular HGB CONC 31.9 g/dL (32.0-36.0); Mean Corpuscular Hemoglobin 28.7 pg (27.0-31.0); Mean Platelet Volume 9.9 fL (7.4-10.4); Monocytes 11 % (0-10); Neutrophil 84 % (42-75); Platelet Count 161 10x3/uL (130-400); Platelet Morphology Comment Appears Adequate; RBC Distribution Width 14.8 % (11.5-14.5); Red Blood Cell (RBC) Count 3.63 mill/uL (4.20-5.40); White Blood Cell (WBC) Count 14.9 10x3/uL (4.8-10.8)
[2022-08-06] MEDS: Furosemide 40 MG/4 ML VIAL SLOW IVP SCH ×2 (05:20→13:57)
[2022-08-06] MEDS: HumaLOG 300 UNITS/3 ML VIAL SC PRN (05:25)
[2022-08-06] MEDS: HumaLOG 300 UNITS/3 ML VIAL SC SCH ×3 (05:25→16:58)
[2022-08-06 06:40] LABS: Anion Gap 12 mmol/L (10-20); BUN (Urea Nitrogen) 69 mg/dL (9.8-20.1); Calc. Creatinine Clearance 226 mL/min (70-130); Calcium 8.4 mg/dL (7.8-10.44); Carbon Dioxide 30 mmol/L (22-29); Chloride 102 mmol/L (98-107); Estimated GFR 108; Glucose 174 mg/dL (70-105); Potassium 4.8 mmol/L (3.5-5.1); Sodium 139 mmol/L (136-145)
[2022-08-06] MEDS ORDERED: Magnesium 2 GM/50 ML(in water) 2 GM in Premix Bag 1 BAG IVPB SCH (08:00)
[2022-08-06] MEDS: Ascorbic Acid 500 mg Chewable Tablet PO SCH (08:24)
[2022-08-06] MEDS: Aspirin Chewable 81 MG TAB PER TUBE SCH (08:24)
[2022-08-06] MEDS: Zinc Sulfate 220 MG CAP PO SCH (08:24)
[2022-08-06] MEDS: Heparin 5,000 UNITS/ML VIAL SC SCH ×3 (08:24→20:50)
[2022-08-06] MEDS: methylPREDNISolone Sod Succ 40 MG VIAL IVP SCH ×2 (08:24→20:49)
[2022-08-06] MEDS: Spironolactone 25 MG TAB PO SCH (08:24)
[2022-08-06] MEDS: Aquaphor 10 GM TUBE TOP SCH (08:25)
[2022-08-06] MEDS ORDERED: Furosemide 40 MG/4 ML VIAL SLOW IVP SCH (09:00)
[2022-08-06] MEDS: cefTRIAXone\\ROCEPHIN 2 GM in Sodium Chloride 0.9% 100 ML IVPB SCH (13:57)
[2022-08-07] MEDS: HumaLOG 300 UNITS/3 ML VIAL SC SCH ×4 (01:37→18:18)
[2022-08-07 04:47] LABS: #Lymphocytes 1.1 thou/uL (1.20-3.40); #Monocytes 1.5 thou/uL (0.11-0.59); %Eosinophils 0.2 % (0.0-10.0); %Lymphocytes 6.7 % (21.0-51.0); %Monocytes 8.9 % (0.0-10.0); %Neutrophils 84.2 % (42.0-75.0); Hemoglobin 10.5 g/dL (12.0-16.0); Mean Corpuscular HGB CONC 31.6 g/dL (32.0-36.0); Mean Corpuscular Hemoglobin 28.8 pg (27.0-31.0); Mean Corpuscular Volume 91.2 fl (78.0-98.0); Mean Platelet Volume 8.7 fL (7.4-10.4); Platelet Count 223 10x3/uL (130-400); RBC Distribution Width 15.7 % (11.5-14.5); Red Blood Cell (RBC) Count 3.64 mill/uL (4.20-5.40); White Blood Cell (WBC) Count 16.7 10x3/uL (4.8-10.8)
[2022-08-07 05:08] LABS: Anion Gap 12 mmol/L (10-20); BUN (Urea Nitrogen) 50 mg/dL (9.8-20.1); Calc. Creatinine Clearance 243 mL/min (70-130); Calcium 8.4 mg/dL (7.8-10.44); Carbon Dioxide 33 mmol/L (22-29); Chloride 102 mmol/L (98-107); Estimated GFR 110; Glucose 166 mg/dL (70-105); Magnesium 4.4 mg/dL (1.6-2.6); Potassium 4.8 mmol/L (3.5-5.1); Sodium 142 mmol/L (136-145)
[2022-08-07] MEDS: Furosemide 40 MG/4 ML VIAL SLOW IVP SCH ×2 (05:47→14:07)
[2022-08-07] MEDS: Ascorbic Acid 500 mg Chewable Tablet PO SCH (08:33)
[2022-08-07] MEDS: Spironolactone 25 MG TAB PO SCH (08:33)
[2022-08-07] MEDS: methylPREDNISolone Sod Succ 40 MG VIAL IVP SCH (08:33)
[2022-08-07] MEDS: Heparin 5,000 UNITS/ML VIAL SC SCH ×3 (08:33→21:14)
[2022-08-07] MEDS: Zinc Sulfate 220 MG CAP PO SCH (08:34)
[2022-08-07] MEDS: Aspirin Chewable 81 MG TAB PER TUBE SCH (08:34)
[2022-08-07] MEDS: HumaLOG 300 UNITS/3 ML VIAL SC PRN ×2 (12:29→18:18)
[2022-08-07] MEDS: Aquaphor 10 GM TUBE TOP SCH (14:07)
[2022-08-07] MEDS: cefTRIAXone\\ROCEPHIN 2 GM in Sodium Chloride 0.9% 100 ML IVPB SCH (14:07)
[2022-08-07] MEDS ORDERED: Morphine 2 MG/ML VIAL SLOW IVP PRN (18:59)
[2022-08-07 22:11] LABS: Hemoglobin 10.6 g/dL (12.0-16.0); Platelet Count 242 10x3/uL (130-400)
[2022-08-08] MEDS: Furosemide 40 MG/4 ML VIAL SLOW IVP SCH ×2 (05:43→15:10)
[2022-08-08] MEDS: HumaLOG 300 UNITS/3 ML VIAL SC SCH ×4 (05:55→18:16)
[2022-08-08 06:08] LABS: #Eosinphils 0.1 thou/uL (0.0-0.7); #Lymphocytes 1.5 thou/uL (1.20-3.40); #Monocytes 1.4 thou/uL (0.11-0.59); #Neutrophils 10.1 thou/uL (1.40-6.50); %Basophils 0.1 % (0.0-1.0); %Eosinophils 0.5 % (0.0-10.0); %Lymphocytes 11.2 % (21.0-51.0); %Monocytes 11.1 % (0.0-10.0); %Neutrophils 77.2 % (42.0-75.0); Hemoglobin 10.5 g/dL (12.0-16.0); Mean Corpuscular HGB CONC 32.3 g/dL (32.0-36.0); Mean Corpuscular Hemoglobin 29.5 pg (27.0-31.0); Mean Corpuscular Volume 91.4 fl (78.0-98.0); Mean Platelet Volume 8.3 fL (7.4-10.4); Platelet Count 225 10x3/uL (130-400); RBC Distribution Width 15.4 % (11.5-14.5); Red Blood Cell (RBC) Count 3.56 mill/uL (4.20-5.40)
[2022-08-08 06:23] LABS: Anion Gap 12 mmol/L (10-20); BUN (Urea Nitrogen) 36 mg/dL (9.8-20.1); Calc. Creatinine Clearance 242 mL/min (70-130); Calcium 8.5 mg/dL (7.8-10.44); Carbon Dioxide 31 mmol/L (22-29); Chloride 103 mmol/L (98-107); Estimated GFR 112; Glucose 167 mg/dL (70-105); Magnesium 1.7 mg/dL (1.6-2.6); Potassium 4.1 mmol/L (3.5-5.1); Sodium 142 mmol/L (136-145)
[2022-08-08] MEDS ORDERED: Magnesium 2 GM/50 ML(in water) 2 GM in Premix Bag 1 BAG IVPB SCH (08:00)
[2022-08-08] MEDS: Ascorbic Acid 500 mg Chewable Tablet PO SCH (08:36)
[2022-08-08] MEDS: Spironolactone 25 MG TAB PO SCH (08:36)
[2022-08-08] MEDS: Aspirin Chewable 81 MG TAB PER TUBE SCH (08:37)
[2022-08-08] MEDS: Zinc Sulfate 220 MG CAP PO SCH (09:13)
[2022-08-08] MEDS: Aquaphor 10 GM TUBE TOP SCH (10:09)
[2022-08-08] MEDS: Heparin 5,000 UNITS/ML VIAL SC SCH ×3 (10:09→20:41)
[2022-08-08] MEDS: cefTRIAXone\\ROCEPHIN 2 GM in Sodium Chloride 0.9% 100 ML IVPB SCH (15:09)
[2022-08-09] MEDS: Furosemide 40 MG/4 ML VIAL SLOW IVP SCH ×2 (05:23→14:15)
[2022-08-09] MEDS: HumaLOG 300 UNITS/3 ML VIAL SC SCH ×4 (05:24→18:28)
[2022-08-09 05:59] LABS: #Eosinphils 0.1 thou/uL (0.0-0.7); #Lymphocytes 1.4 thou/uL (1.20-3.40); #Monocytes 1.3 thou/uL (0.11-0.59); #Neutrophils 8.9 thou/uL (1.40-6.50); %Basophils 0.1 % (0.0-1.0); %Eosinophils 0.5 % (0.0-10.0); %Lymphocytes 11.6 % (21.0-51.0); %Monocytes 11.1 % (0.0-10.0); %Neutrophils 76.7 % (42.0-75.0); Hemoglobin 10.9 g/dL (12.0-16.0); Mean Corpuscular Hemoglobin 29.3 pg (27.0-31.0); Mean Corpuscular Volume 91.4 fl (78.0-98.0); Mean Platelet Volume 8.1 fL (7.4-10.4); Platelet Count 222 10x3/uL (130-400); RBC Distribution Width 15.5 % (11.5-14.5); Red Blood Cell (RBC) Count 3.74 mill/uL (4.20-5.40); White Blood Cell (WBC) Count 11.7 10x3/uL (4.8-10.8)
[2022-08-09 06:21] LABS: ALT (SGPT) 39 U/L (8-55); AST (SGOT) 58 U/L (5-34); Albumin 2.6 g/dL (3.5-5.0); Alkaline Phosphatase 145 U/L (40-110); Anion Gap 10 mmol/L (10-20); BUN (Urea Nitrogen) 26 mg/dL (9.8-20.1); Bilirubin, Total 1.2 mg/dL (0.2-1.2); Calc. Creatinine Clearance 257 mL/min (70-130); Calcium 8.2 mg/dL (7.8-10.44); Carbon Dioxide 31 mmol/L (22-29); Chloride 104 mmol/L (98-107); Estimated GFR 113; Globulin 3.3 g/dL (2.4-3.5); Glucose 128 mg/dL (70-105); Magnesium 1.7 mg/dL (1.6-2.6); Potassium 3.7 mmol/L (3.5-5.1); Protein, Total 5.9 g/dL (6.0-8.3); Sodium 141 mmol/L (136-145)
[2022-08-09] MEDS ORDERED: Magnesium 2 GM/50 ML(in water) 2 GM in Premix Bag 1 BAG IVPB SCH (08:00)
[2022-08-09] MEDS ORDERED: Spironolactone 25 MG TAB PO SCH ×2 (08:26→08:30)
[2022-08-09] MEDS: Ascorbic Acid 500 mg Chewable Tablet PO SCH (08:32)
[2022-08-09] MEDS: Aspirin Chewable 81 MG TAB PER TUBE SCH (08:33)
[2022-08-09] MEDS: Heparin 5,000 UNITS/ML VIAL SC SCH ×3 (08:33→19:59)
[2022-08-09] MEDS: Zinc Sulfate 220 MG CAP PO SCH (08:33)
[2022-08-09] MEDS: Spironolactone 25 MG TAB PO SCH (08:35)
[2022-08-09] MEDS: Lisinopril 2.5 MG TAB PO SCH ×2 (08:35→19:59)
[2022-08-09] MEDS: Aquaphor 10 GM TUBE TOP SCH (08:53)
[2022-08-09] MEDS ORDERED: Lisinopril 5 MG TAB PO SCH (09:00)
[2022-08-09] MEDS ORDERED: Potassium Bicarbonate/Cit Ac 20 MEQ TAB PO SCH (12:15)
[2022-08-09] MEDS: cefTRIAXone\\ROCEPHIN 2 GM in Sodium Chloride 0.9% 100 ML IVPB SCH (14:15)
[2022-08-10] MEDS: HumaLOG 300 UNITS/3 ML VIAL SC SCH ×4 (00:29→18:31)
[2022-08-10] MEDS: Furosemide 40 MG/4 ML VIAL SLOW IVP SCH (07:03)
[2022-08-10] MEDS: Zinc Sulfate 220 MG CAP PO SCH (09:28)
[2022-08-10] MEDS: Ascorbic Acid 500 mg Chewable Tablet PO SCH (09:28)
[2022-08-10] MEDS: Lisinopril 2.5 MG TAB PO SCH ×2 (09:29→20:48)
[2022-08-10] MEDS: Spironolactone 25 MG TAB PO SCH (09:29)
[2022-08-10] MEDS: Aspirin Chewable 81 MG TAB PER TUBE SCH (09:30)
[2022-08-10] MEDS: Aquaphor 10 GM TUBE TOP SCH (09:30)
[2022-08-10] MEDS: Heparin 5,000 UNITS/ML VIAL SC SCH ×3 (09:30→20:48)
[2022-08-10 10:24] LABS: Anion Gap 11 mmol/L (10-20); BUN (Urea Nitrogen) 32 mg/dL (9.8-20.1); Calc. Creatinine Clearance 205 mL/min (70-130); Calcium 8.5 mg/dL (7.8-10.44); Carbon Dioxide 31 mmol/L (22-29); Chloride 102 mmol/L (98-107); Estimated GFR 109; Glucose 247 mg/dL (70-105); Potassium 3.6 mmol/L (3.5-5.1); Sodium 140 mmol/L (136-145)
[2022-08-10] MEDS ORDERED: Potassium Chloride 20 MEQ TAB PO SCH (10:30)
[2022-08-10] MEDS ORDERED: Magnesium 2 GM/50 ML(in water) 2 GM in Premix Bag 1 BAG IVPB SCH (13:00)
[2022-08-10] MEDS ORDERED: Sodium Bicarbonate Tab 325 MG TAB PER TUBE PRN (15:15)
[2022-08-10] MEDS ORDERED: Pancrelipase DR 12,000 1 CAP FS PRN (15:15)
[2022-08-10] MEDS: Furosemide 20 MG/2 ML VIAL SLOW IVP SCH (15:23)
[2022-08-10] MEDS: cefTRIAXone\\ROCEPHIN 2 GM in Sodium Chloride 0.9% 100 ML IVPB SCH (18:31)
[2022-08-11] MEDS: HumaLOG 300 UNITS/3 ML VIAL SC SCH ×4 (01:26→17:59)
[2022-08-11] MEDS: Furosemide 20 MG/2 ML VIAL SLOW IVP SCH ×2 (05:55→14:37)
[2022-08-11] MEDS: Acetaminophen 325 MG TAB PO PRN ×2 (09:33→20:58)
[2022-08-11] MEDS: Lisinopril 2.5 MG TAB PO SCH ×2 (09:40→20:58)
[2022-08-11] MEDS: Spironolactone 25 MG TAB PO SCH (09:40)
[2022-08-11] MEDS: Ascorbic Acid 500 mg Chewable Tablet PO SCH (09:40)
[2022-08-11] MEDS: Aspirin Chewable 81 MG TAB PER TUBE SCH (09:40)
[2022-08-11] MEDS: Zinc Sulfate 220 MG CAP PO SCH (09:40)
[2022-08-11] MEDS: Heparin 5,000 UNITS/ML VIAL SC SCH ×3 (09:41→20:58)
[2022-08-11] MEDS: Aquaphor 10 GM TUBE TOP SCH (09:50)
[2022-08-11 12:51] LABS: #Eosinphils 0.1 thou/uL (0.0-0.7); #Lymphocytes 1.9 thou/uL (1.20-3.40); #Monocytes 1.4 thou/uL (0.11-0.59); #Neutrophils 8.5 thou/uL (1.40-6.50); %Basophils 0.1 % (0.0-1.0); %Eosinophils 1.2 % (0.0-10.0); %Lymphocytes 15.5 % (21.0-51.0); %Monocytes 11.9 % (0.0-10.0); %Neutrophils 71.3 % (42.0-75.0); Hemoglobin 10.5 g/dL (12.0-16.0); Mean Corpuscular HGB CONC 31.9 g/dL (32.0-36.0); Mean Corpuscular Hemoglobin 29.3 pg (27.0-31.0); Mean Corpuscular Volume 91.8 fl (78.0-98.0); Platelet Count 262 10x3/uL (130-400); RBC Distribution Width 15.9 % (11.5-14.5); White Blood Cell (WBC) Count 11.9 10x3/uL (4.8-10.8)
[2022-08-11 13:02] LABS: Calcium 8.3 mg/dL (7.8-10.44); Chloride 104 mmol/L (98-107); Potassium 3.6 mmol/L (3.5-5.1); Sodium 142 mmol/L (136-145)
[2022-08-11 13:03] LABS: Glucose 185 mg/dL (70-105)
[2022-08-11 13:04] LABS: Anion Gap 10 mmol/L (10-20); Carbon Dioxide 32 mmol/L (22-29)
[2022-08-11 13:06] LABS: Calc. Creatinine Clearance 200 mL/min (70-130); Estimated GFR 108
[2022-08-11 13:07] LABS: BUN (Urea Nitrogen) 34 mg/dL (9.8-20.1)
[2022-08-11 13:08] LABS: Magnesium 2.1 mg/dL (1.6-2.6)
[2022-08-11] MEDS: cefTRIAXone\\ROCEPHIN 2 GM in Sodium Chloride 0.9% 100 ML IVPB SCH (14:37)
[2022-08-11] MEDS: Micafungin 100 MG in Sodium Chloride 0.9% 100 ML IVPB SCH (17:50)
[2022-08-12] MEDS: HumaLOG 300 UNITS/3 ML VIAL SC SCH ×4 (00:16→19:23)
[2022-08-12] MEDS: Furosemide 20 MG/2 ML VIAL SLOW IVP SCH ×2 (05:41→14:13)
[2022-08-12 06:23] LABS: #Eosinphils 0.2 thou/uL (0.0-0.7); #Lymphocytes 1.7 thou/uL (1.20-3.40); #Monocytes 1.1 thou/uL (0.11-0.59); %Basophils 0.3 % (0.0-1.0); %Eosinophils 1.6 % (0.0-10.0); %Lymphocytes 16.7 % (21.0-51.0); %Monocytes 10.8 % (0.0-10.0); %Neutrophils 70.6 % (42.0-75.0); Hemoglobin 9.8 g/dL (12.0-16.0); Mean Corpuscular HGB CONC 31.9 g/dL (32.0-36.0); Mean Corpuscular Hemoglobin 29.7 pg (27.0-31.0); Mean Platelet Volume 8.4 fL (7.4-10.4); Platelet Count 232 10x3/uL (130-400); Red Blood Cell (RBC) Count 3.32 mill/uL (4.20-5.40); White Blood Cell (WBC) Count 9.9 10x3/uL (4.8-10.8)
[2022-08-12 06:46] LABS: Anion Gap 8 mmol/L (10-20); BUN (Urea Nitrogen) 31 mg/dL (9.8-20.1); Calc. Creatinine Clearance 208 mL/min (70-130); Calcium 8.2 mg/dL (7.8-10.44); Carbon Dioxide 32 mmol/L (22-29); Chloride 105 mmol/L (98-107); Estimated GFR 109; Glucose 227 mg/dL (70-105); Potassium 3.6 mmol/L (3.5-5.1); Sodium 141 mmol/L (136-145)
[2022-08-12] MEDS: Lisinopril 2.5 MG TAB PO SCH ×2 (08:46→20:37)
[2022-08-12] MEDS: Spironolactone 25 MG TAB PO SCH (08:46)
[2022-08-12] MEDS: Ascorbic Acid 500 mg Chewable Tablet PO SCH (08:46)
[2022-08-12] MEDS: Zinc Sulfate 220 MG CAP PO SCH (08:47)
[2022-08-12] MEDS: Aspirin Chewable 81 MG TAB PER TUBE SCH (08:47)
[2022-08-12] MEDS: Heparin 5,000 UNITS/ML VIAL SC SCH ×3 (08:48→20:37)
[2022-08-12] MEDS: Aquaphor 10 GM TUBE TOP SCH (08:48)
[2022-08-12] MEDS: cefTRIAXone\\ROCEPHIN 2 GM in Sodium Chloride 0.9% 100 ML IVPB SCH (14:03)
[2022-08-12] MEDS: HumaLOG 300 UNITS/3 ML VIAL SC PRN (16:45)
[2022-08-12] MEDS: Micafungin 100 MG in Sodium Chloride 0.9% 100 ML IVPB SCH (17:27)
[2022-08-13] MEDS: HumaLOG 300 UNITS/3 ML VIAL SC SCH ×4 (00:54→18:20)
[2022-08-13] MEDS: Furosemide 20 MG/2 ML VIAL SLOW IVP SCH ×2 (05:51→13:05)
[2022-08-13 06:19] LABS: #Eosinphils 0.1 thou/uL (0.0-0.7); #Lymphocytes 1.5 thou/uL (1.20-3.40); #Neutrophils 5.8 thou/uL (1.40-6.50); %Basophils 0.5 % (0.0-1.0); %Eosinophils 1.4 % (0.0-10.0); %Lymphocytes 17.8 % (21.0-51.0); %Monocytes 11.3 % (0.0-10.0); %Neutrophils 68.9 % (42.0-75.0); Hemoglobin 11.1 g/dL (12.0-16.0); Mean Corpuscular HGB CONC 31.9 g/dL (32.0-36.0); Mean Corpuscular Hemoglobin 29.6 pg (27.0-31.0); Mean Corpuscular Volume 92.8 fl (78.0-98.0); Mean Platelet Volume 7.8 fL (7.4-10.4); Platelet Count 258 10x3/uL (130-400); RBC Distribution Width 16.5 % (11.5-14.5); Red Blood Cell (RBC) Count 3.77 mill/uL (4.20-5.40); White Blood Cell (WBC) Count 8.4 10x3/uL (4.8-10.8)
[2022-08-13 06:39] LABS: Anion Gap 8 mmol/L (10-20); BUN (Urea Nitrogen) 24 mg/dL (9.8-20.1); Calc. Creatinine Clearance 202 mL/min (70-130); Calcium 8.6 mg/dL (7.8-10.44); Carbon Dioxide 31 mmol/L (22-29); Chloride 106 mmol/L (98-107); Estimated GFR 108; Glucose 237 mg/dL (70-105); Potassium 4.2 mmol/L (3.5-5.1); Sodium 141 mmol/L (136-145)
[2022-08-13] MEDS: Aspirin Chewable 81 MG TAB PER TUBE SCH (09:47)
[2022-08-13] MEDS: Lisinopril 2.5 MG TAB PO SCH ×2 (09:47→21:24)
[2022-08-13] MEDS: Aquaphor 10 GM TUBE TOP SCH (09:47)
[2022-08-13] MEDS: Ascorbic Acid 500 mg Chewable Tablet PO SCH (09:47)
[2022-08-13] MEDS: Zinc Sulfate 220 MG CAP PO SCH (09:47)
[2022-08-13] MEDS: Spironolactone 25 MG TAB PO SCH (09:47)
[2022-08-13] MEDS: Heparin 5,000 UNITS/ML VIAL SC SCH ×3 (09:53→21:24)
[2022-08-13] MEDS: cefTRIAXone\\ROCEPHIN 2 GM in Sodium Chloride 0.9% 100 ML IVPB SCH (13:05)
[2022-08-13 15:43] VITALS: BMI 44.4
[2022-08-13] MEDS: Micafungin 100 MG in Sodium Chloride 0.9% 100 ML IVPB SCH (16:11)
[2022-08-13] MEDS: Acetaminophen 325 MG TAB PO PRN (21:26)
[2022-08-14] MEDS: HumaLOG 300 UNITS/3 ML VIAL SC SCH ×4 (01:06→17:06)
[2022-08-14] MEDS: Acetaminophen 325 MG TAB PO PRN ×3 (01:50→16:29)
[2022-08-14] MEDS: Furosemide 20 MG/2 ML VIAL SLOW IVP SCH ×2 (05:56→13:14)
[2022-08-14 07:55] LABS: #Basophils 0.1 thou/uL (0.0-0.2); #Eosinphils 0.1 thou/uL (0.0-0.7); #Lymphocytes 2.2 thou/uL (1.20-3.40); #Neutrophils 8.1 thou/uL (1.40-6.50); %Basophils 0.5 % (0.0-1.0); %Eosinophils 0.7 % (0.0-10.0); %Lymphocytes 19.1 % (21.0-51.0); %Monocytes 9.1 % (0.0-10.0); %Neutrophils 70.7 % (42.0-75.0); Hemoglobin 11.6 g/dL (12.0-16.0); Mean Corpuscular HGB CONC 30.8 g/dL (32.0-36.0); Mean Corpuscular Hemoglobin 28.9 pg (27.0-31.0); Mean Platelet Volume 8.4 fL (7.4-10.4); Platelet Count 243 10x3/uL (130-400); RBC Distribution Width 16.6 % (11.5-14.5); White Blood Cell (WBC) Count 11.4 10x3/uL (4.8-10.8)
[2022-08-14 08:12] LABS: Anion Gap 14 mmol/L (10-20); BUN (Urea Nitrogen) 28 mg/dL (9.8-20.1); Calc. Creatinine Clearance 195 mL/min (70-130); Calcium 8.8 mg/dL (7.8-10.44); Carbon Dioxide 25 mmol/L (22-29); Chloride 105 mmol/L (98-107); Estimated GFR 107; Glucose 246 mg/dL (70-105); Potassium 4.6 mmol/L (3.5-5.1); Sodium 139 mmol/L (136-145)
[2022-08-14] MEDS: Aquaphor 10 GM TUBE TOP SCH (09:15)
[2022-08-14] MEDS: Spironolactone 25 MG TAB PO SCH (09:15)
[2022-08-14] MEDS: Ascorbic Acid 500 mg Chewable Tablet PO SCH (09:15)
[2022-08-14] MEDS: Aspirin Chewable 81 MG TAB PER TUBE SCH (09:15)
[2022-08-14] MEDS: Zinc Sulfate 220 MG CAP PO SCH (09:15)
[2022-08-14] MEDS: Lisinopril 2.5 MG TAB PO SCH ×2 (09:15→21:42)
[2022-08-14] MEDS: Heparin 5,000 UNITS/ML VIAL SC SCH ×3 (09:16→21:41)
[2022-08-14] MEDS: cefTRIAXone\\ROCEPHIN 2 GM in Sodium Chloride 0.9% 100 ML IVPB SCH (13:13)
[2022-08-14] MEDS: Micafungin 100 MG in Sodium Chloride 0.9% 100 ML IVPB SCH (16:21)
[2022-08-14] MEDS ORDERED: Furosemide 40 MG/4 ML VIAL SLOW IVP SCH (17:30)
[2022-08-14] MEDS ORDERED: Ketorolac Tromethamine 30 MG/ML VIAL IVP SCH (17:30)
[2022-08-14] MEDS ORDERED: DAPTOmycin 500 MG VIAL SLOW IVP SCH (17:45)
[2022-08-14] MEDS ORDERED: Meropenem 1 GM in Sodium Chloride 0.9% 100 ML IVPB SCH ×2 (18:45→22:00)
[2022-08-14] MEDS: Meropenem 1 GM in Sodium Chloride 0.9% 100 ML IVPB SCH (18:52)
[2022-08-14] MEDS ORDERED: Sodium Chloride 0.9% 500 ML IV SCH (19:00)
[2022-08-14] MEDS: DAPTOmycin 500 MG in Sodium Chloride 0.9% 100 ML IVPB SCH (23:01)
[2022-08-15] MEDS: HumaLOG 300 UNITS/3 ML VIAL SC SCH ×5 (00:25→23:16)
[2022-08-15] MEDS: Meropenem 1 GM in Sodium Chloride 0.9% 100 ML IVPB SCH ×3 (04:01→19:53)
[2022-08-15 05:46] LABS: #Basophils 0.1 thou/uL (0.0-0.2); #Eosinphils 0.1 thou/uL (0.0-0.7); #Lymphocytes 2.7 thou/uL (1.20-3.40); #Monocytes 1.5 thou/uL (0.11-0.59); #Neutrophils 11.4 thou/uL (1.40-6.50); %Basophils 0.3 % (0.0-1.0); %Eosinophils 0.4 % (0.0-10.0); %Monocytes 9.6 % (0.0-10.0); %Neutrophils 72.6 % (42.0-75.0); Hemoglobin 11.4 g/dL (12.0-16.0); Mean Corpuscular HGB CONC 30.8 g/dL (32.0-36.0); Mean Corpuscular Hemoglobin 29.4 pg (27.0-31.0); Mean Corpuscular Volume 95.3 fl (78.0-98.0); Mean Platelet Volume 10.5 fL (7.4-10.4); Platelet Count 179 10x3/uL (130-400); RBC Distribution Width 16.7 % (11.5-14.5); Red Blood Cell (RBC) Count 3.87 mill/uL (4.20-5.40); White Blood Cell (WBC) Count 15.8 10x3/uL (4.8-10.8)
[2022-08-15 05:52] LABS: Anion Gap 14 mmol/L (10-20); BUN (Urea Nitrogen) 37 mg/dL (9.8-20.1); Calc. Creatinine Clearance 175 mL/min (70-130); Calcium 8.2 mg/dL (7.8-10.44); Carbon Dioxide 20 mmol/L (22-29); Chloride 107 mmol/L (98-107); Estimated GFR 106; Glucose 220 mg/dL (70-105); Potassium 4.4 mmol/L (3.5-5.1); Sodium 137 mmol/L (136-145)
[2022-08-15] MEDS: Furosemide 20 MG/2 ML VIAL SLOW IVP SCH ×2 (06:22→15:25)
[2022-08-15] MEDS: Heparin 5,000 UNITS/ML VIAL SC SCH ×2 (09:50→15:25)
[2022-08-15] MEDS: Ascorbic Acid 500 mg Chewable Tablet PO SCH (09:50)
[2022-08-15] MEDS: Zinc Sulfate 220 MG CAP PO SCH (09:50)
[2022-08-15] MEDS: Aspirin Chewable 81 MG TAB PER TUBE SCH (09:50)
[2022-08-15] MEDS: Aquaphor 10 GM TUBE TOP SCH (09:51)
[2022-08-15] MEDS: Spironolactone 25 MG TAB PO SCH (09:51)
[2022-08-15] MEDS: Lisinopril 2.5 MG TAB PO SCH ×2 (09:52→19:54)
[2022-08-15] MEDS: DAPTOmycin 500 MG in Sodium Chloride 0.9% 100 ML IVPB SCH (19:58)
[2022-08-16] MEDS: Meropenem 1 GM in Sodium Chloride 0.9% 100 ML IVPB SCH ×3 (03:01→21:23)
[2022-08-16] MEDS: HumaLOG 300 UNITS/3 ML VIAL SC SCH ×3 (04:32→17:06)
[2022-08-16] MEDS: Furosemide 20 MG/2 ML VIAL SLOW IVP SCH ×2 (05:29→14:01)
[2022-08-16 07:35] LABS: #Basophils 0.1 thou/uL (0.0-0.2); #Eosinphils 0.2 thou/uL (0.0-0.7); #Lymphocytes 2.3 thou/uL (1.20-3.40); #Monocytes 1.1 thou/uL (0.11-0.59); #Neutrophils 9.5 thou/uL (1.40-6.50); %Basophils 0.4 % (0.0-1.0); %Eosinophils 1.4 % (0.0-10.0); %Lymphocytes 17.8 % (21.0-51.0); %Monocytes 8.6 % (0.0-10.0); %Neutrophils 71.9 % (42.0-75.0); Hemoglobin 10.5 g/dL (12.0-16.0); Mean Corpuscular HGB CONC 30.7 g/dL (32.0-36.0); Mean Corpuscular Hemoglobin 29.4 pg (27.0-31.0); Mean Corpuscular Volume 95.6 fl (78.0-98.0); Mean Platelet Volume 8.7 fL (7.4-10.4); Platelet Count 220 10x3/uL (130-400); RBC Distribution Width 16.7 % (11.5-14.5); Red Blood Cell (RBC) Count 3.56 mill/uL (4.20-5.40); White Blood Cell (WBC) Count 13.2 10x3/uL (4.8-10.8)
[2022-08-16 07:57] LABS: Anion Gap 12 mmol/L (10-20); BUN (Urea Nitrogen) 38 mg/dL (9.8-20.1); Calc. Creatinine Clearance 191 mL/min (70-130); Calcium 7.7 mg/dL (7.8-10.44); Carbon Dioxide 26 mmol/L (22-29); Chloride 109 mmol/L (98-107); Estimated GFR 108; Glucose 146 mg/dL (70-105); Sodium 142 mmol/L (136-145)
[2022-08-16] MEDS: Zinc Sulfate 220 MG CAP PO SCH (09:06)
[2022-08-16] MEDS: Spironolactone 25 MG TAB PO SCH (09:06)
[2022-08-16] MEDS: Fluconazole In NaCl,Iso-Osm 200 MG in Premix Bag 1 BAG IVPB SCH (09:06)
[2022-08-16] MEDS: Ascorbic Acid 500 mg Chewable Tablet PO SCH (09:06)
[2022-08-16] MEDS: Aquaphor 10 GM TUBE TOP SCH (09:07)
[2022-08-16] MEDS: Lisinopril 2.5 MG TAB PO SCH ×2 (12:25→21:24)
[2022-08-16] MEDS ORDERED: Morphine 4 MG/ML VIAL SLOW IVP PRN (17:22)
[2022-08-17] MEDS: DAPTOmycin 500 MG in Sodium Chloride 0.9% 100 ML IVPB SCH (00:35)
[2022-08-17] MEDS: HumaLOG 300 UNITS/3 ML VIAL SC SCH ×3 (00:36→13:32)
[2022-08-17] MEDS: Furosemide 20 MG/2 ML VIAL SLOW IVP SCH ×2 (04:30→16:06)
[2022-08-17 04:31] LABS: Actual Bicarbonate (HCO3a) 30.6 mEq/L (22-28); Base Excess (BEa) 4.2 mEq/L (-2.0 to +3.0); CO2 Tension 53.6 mmHg (35.0-45.0); Calcium, Ionized (arterial) 1.13 mmol/L (1.12-1.30); Carboxyhemoglobin (COHb) 1.6 gm% (0.0-3.0); Hemoglobin (Hb) 12.9 g/dL (12.0-16.0); pH, Arterial 7.37 (7.35-7.45)
[2022-08-17 04:32] LABS: O2 Tension (PaO2), arterial 47.5 mmHg (80.0-100.0)
[2022-08-17 04:33] LABS: Puncture Site RBA
[2022-08-17 04:59] LABS: #Eosinphils 0.1 thou/uL (0.0-0.7); #Lymphocytes 2.2 thou/uL (1.20-3.40); #Neutrophils 6.5 thou/uL (1.40-6.50); %Basophils 0.5 % (0.0-1.0); %Eosinophils 1.3 % (0.0-10.0); %Lymphocytes 22.4 % (21.0-51.0); %Monocytes 9.6 % (0.0-10.0); %Neutrophils 66.2 % (42.0-75.0); Hemoglobin 11.5 g/dL (12.0-16.0); Mean Corpuscular HGB CONC 31.4 g/dL (32.0-36.0); Mean Corpuscular Hemoglobin 29.6 pg (27.0-31.0); Mean Corpuscular Volume 94.2 fl (78.0-98.0); Platelet Count 238 10x3/uL (130-400); RBC Distribution Width 16.1 % (11.5-14.5); Red Blood Cell (RBC) Count 3.88 mill/uL (4.20-5.40); White Blood Cell (WBC) Count 9.9 10x3/uL (4.8-10.8)
[2022-08-17 05:16] LABS: Lactic Acid 1.9 mmol/L (0.5-2.2)
[2022-08-17 05:21] LABS: ALT (SGPT) 30 U/L (8-55); AST (SGOT) 49 U/L (5-34); Albumin 2.2 g/dL (3.5-5.0); Alkaline Phosphatase 195 U/L (40-110); Anion Gap 13 mmol/L (10-20); BUN (Urea Nitrogen) 39 mg/dL (9.8-20.1); Calc. Creatinine Clearance 215 mL/min (70-130); Calcium 8.1 mg/dL (7.8-10.44); Carbon Dioxide 26 mmol/L (22-29); Chloride 110 mmol/L (98-107); Estimated GFR 110; Globulin 4.3 g/dL (2.4-3.5); Glucose 203 mg/dL (70-105); Potassium 4.1 mmol/L (3.5-5.1); Protein, Total 6.5 g/dL (6.0-8.3); Sodium 145 mmol/L (136-145)
[2022-08-17] MEDS: Meropenem 1 GM in Sodium Chloride 0.9% 100 ML IVPB SCH ×2 (06:54→13:13)
[2022-08-17] MEDS: Fluconazole In NaCl,Iso-Osm 200 MG in Premix Bag 1 BAG IVPB SCH (09:27)
[2022-08-17] MEDS: Lisinopril 2.5 MG TAB PO SCH (09:29)
[2022-08-17] MEDS: Spironolactone 25 MG TAB PO SCH (09:30)
[2022-08-17] MEDS: Ascorbic Acid 500 mg Chewable Tablet PO SCH (09:30)
[2022-08-17] MEDS: Acetaminophen 325 MG TAB PO PRN (09:31)
[2022-08-17] MEDS: Zinc Sulfate 220 MG CAP PO SCH (09:32)
[2022-08-17] MEDS: Aquaphor 10 GM TUBE TOP SCH (09:34)
[2022-08-17 16:39] VITALS: BP 107/70; TEMP 98.4
== END 2022-08-17 17:29 | disposition hospice, inpatient (51) | DRG 853 ==
LOC: ERS 15:38 → CCL 18:17 → CCU 19:26 → IMCU/EMU 08-06 20:07 → T4-B 08-09 21:00 → IMCU/EMU 08-14 22:04 → NEURO 08-16 23:02
PROVIDERS: ADMIT Family Medicine; ATTEND Internal Medicine
PROC: 0JB90ZZ Excision of Buttock Subcutaneous Tissue and Fascia, Open Approach (ICD-10-PCS; principal; 2022-07-28)
PROC: 02H633Z Insertion of Infusion Device into Right Atrium, Percutaneous Approach (ICD-10-PCS; 2022-07-28)
PROC: 3E043XZ Introduction of Vasopressor into Central Vein, Percutaneous Approach (ICD-10-PCS; 2022-07-28)
PROC: 30233J1 Transfusion of Nonautologous Serum Albumin into Peripheral Vein, Percutaneous Approach (ICD-10-PCS; 2022-07-28)
PROC: 0BH17EZ Insertion of Endotracheal Airway into Trachea, Via Natural or Artificial Opening (ICD-10-PCS; 2022-07-28)
PROC: 5A1955Z Respiratory Ventilation, Greater than 96 Consecutive Hours (ICD-10-PCS; 2022-07-28)
PROC: 3E04329 Introduction of Other Anti-infective into Central Vein, Percutaneous Approach (ICD-10-PCS; 2022-07-28)
PROC: 5A0935A Assistance with Respiratory Ventilation, Less than 24 Consecutive Hours, High Flow/Velocity Cannula (ICD-10-PCS; 2022-08-15)
DX: A40.8 Other streptococcal sepsis (principal); G93.41 Metabolic encephalopathy; R65.21 Severe sepsis with septic shock; J96.01 Acute respiratory failure with hypoxia; J96.02 Acute respiratory failure with hypercapnia; I33.0 Acute and subacute infective endocarditis; J18.9 Pneumonia, unspecified organism; M72.6 Necrotizing fasciitis; I21.19 ST elevation (STEMI) myocardial infarction involving other coronary artery of inferior wall; J90 Pleural effusion, not elsewhere classified; E87.1 Hypo-osmolality and hyponatremia; M46.28 Osteomyelitis of vertebra, sacral and sacrococcygeal region; Z68.42 Body mass index [BMI] 45.0-49.9, adult; L03.317 Cellulitis of buttock; L03.116 Cellulitis of left lower limb; N39.0 Urinary tract infection, site not specified; E11.52 Type 2 diabetes mellitus with diabetic peripheral angiopathy with gangrene; I50.30 Unspecified diastolic (congestive) heart failure; I70.262 Atherosclerosis of native arteries of extremities with gangrene, left leg; N17.9 Acute kidney failure, unspecified; I76 Septic arterial embolism; I13.0 Hypertensive heart and chronic kidney disease with heart failure and stage 1 through stage 4 chronic kidney disease, or unspecified chronic kidney disease; E87.20 Acidosis, unspecified; L02.31 Cutaneous abscess of buttock; Z66 Do not resuscitate; I66.9 Occlusion and stenosis of unspecified cerebral artery; Z51.5 Encounter for palliative care; F17.210 Nicotine dependence, cigarettes, uncomplicated; E11.69 Type 2 diabetes mellitus with other specified complication; E66.01 Morbid (severe) obesity due to excess calories; D69.6 Thrombocytopenia, unspecified; I87.2 Venous insufficiency (chronic) (peripheral); E87.6 Hypokalemia; E83.42 Hypomagnesemia; E88.09 Other disorders of plasma-protein metabolism, not elsewhere classified; E11.22 Type 2 diabetes mellitus with diabetic chronic kidney disease; S31.000A Unspecified open wound of lower back and pelvis without penetration into retroperitoneum, initial encounter; M79.89 Other specified soft tissue disorders; L89.159 Pressure ulcer of sacral region, unspecified stage; E83.51 Hypocalcemia; Z20.822 Contact with and (suspected) exposure to COVID-19; R53.81 Other malaise; E11.51 Type 2 diabetes mellitus with diabetic peripheral angiopathy without gangrene; Z88.1 Allergy status to other antibiotic agents; Z79.899 Other long term (current) drug therapy; Z79.84 Long term (current) use of oral hypoglycemic drugs; Z79.4 Long term (current) use of insulin; Z90.49 Acquired absence of other specified parts of digestive tract; Z90.710 Acquired absence of both cervix and uterus; Z79.82 Long term (current) use of aspirin
CPT/HCPCS: 36415; 36416; 36556; 36600; 51702; 70450; 71045; 71275; 74018; 74177; 80048; 80053; 81003; 81015; 82533; 82550; 82553; 82805; 83036; 83605; 83735; 83880; 84443; 84484; 85025; 85730; 86850; 86900; 86901; 87040; 87070; 87076; 87077; 87081; 87086; 87149; 87186; 87205; 87811; 93005; 93010; 93306; 94002; 94003; 94760; 95712; 95819; 95957; 96365; 96367; 97139; C9113; J0171; J0692; J0696; J0878; J1450; J1644; J1650; J1815; J1885; J1940; J2020; J2060; J2185; J2248; J2270; J2272; J2543; J2920; J3010; J3475; J3490; J7050; J7120; P9047; Q9967; U0003; U0005

== ENCOUNTER 2022-08-17 17:58 | Inpatient (IN) | payer OTHER ==
[2022-08-17] MEDS ORDERED: Bisacodyl 10 MG SUPP PR PRN (18:14)
[2022-08-17] MEDS ORDERED: Glycopyrrolate 0.4 MG/ 2 ML VIAL SLOW IVP PRN (18:14)
[2022-08-17] MEDS ORDERED: Acetaminophen 650 MG Suppository PR PRN (18:15)
[2022-08-17] MEDS ORDERED: Lorazepam 2 MG/ML VIAL SLOW IVP PRN (18:15)
[2022-08-17] MEDS ORDERED: Haloperidol Lactate 5 MG/ML VIAL SLOW IVP PRN (18:15)
[2022-08-17] MEDS ORDERED: Ondansetron PF 4 MG/2 ML Vial IVP PRN (18:15)
[2022-08-17] MEDS: Scopolamine 1.5 mg/72 hour Patch TOP PRN (18:36)
[2022-08-17] MEDS: Morphine 4 MG/ML VIAL SLOW IVP PRN (18:37)
[2022-08-18] MEDS: Morphine 4 MG/ML VIAL SLOW IVP PRN ×4 (06:56→18:26)
[2022-08-18] MEDS: Acetaminophen 650 MG/20.3 ML UDCUP PO PRN ×3 (10:04→22:59)
[2022-08-18] MEDS: Glycopyrrolate 0.2 MG/ML 5 ML SYRINGE SLOW IVP PRN (12:15)
[2022-08-18 15:44] VITALS: BMI 43.4
[2022-08-19] MEDS: Morphine 4 MG/ML VIAL SLOW IVP PRN (01:58)
[2022-08-19] MEDS: Glycopyrrolate 0.2 MG/ML 5 ML SYRINGE SLOW IVP PRN (03:55)
[2022-08-19] MEDS: Acetaminophen 650 MG/20.3 ML UDCUP PO PRN ×2 (08:42→17:57)
[2022-08-20] MEDS: Morphine 4 MG/ML VIAL SLOW IVP PRN ×2 (13:21→21:43)
[2022-08-21] MEDS: Morphine 4 MG/ML VIAL SLOW IVP PRN (04:45)
[2022-08-21] MEDS: Scopolamine 1.5 mg/72 hour Patch TOP PRN (22:46)
[2022-08-22] MEDS: Morphine 4 MG/ML VIAL SLOW IVP PRN (09:45)
[2022-08-23] MEDS: Morphine 4 MG/ML VIAL SLOW IVP PRN ×3 (03:12→16:57)
[2022-08-23 20:44] VITALS: TEMP 98.3
[2022-08-24 20:55] VITALS: BP 79/53
== END 2022-08-25 00:45 | disposition expired | DRG 951 ==
LOC: NEURO 17:58 → SURG A 08-18 22:08
PROVIDERS: ADMIT Family Medicine; ATTEND Family Medicine
DX: Z51.5 Encounter for palliative care (principal); Z66 Do not resuscitate; R65.21 Severe sepsis with septic shock; A41.9 Sepsis, unspecified organism; I21.3 ST elevation (STEMI) myocardial infarction of unspecified site; I33.0 Acute and subacute infective endocarditis; Z68.41 Body mass index [BMI] 40.0-44.9, adult; I96 Gangrene, not elsewhere classified; E11.9 Type 2 diabetes mellitus without complications; F17.210 Nicotine dependence, cigarettes, uncomplicated; Z88.1 Allergy status to other antibiotic agents; Z90.49 Acquired absence of other specified parts of digestive tract; Z90.710 Acquired absence of both cervix and uterus
CPT/HCPCS: 36416; 97139; J2060; J2270